=== PATIENT | female | born 1970 | race Caucasian/White ===

== ENCOUNTER → 2016-06-06 | Outpatient (REF) | payer OTHER | LOC: M LAB REF 12:25 | PROVIDERS: ATTEND Physician Assistant | DX: J02.9 Acute pharyngitis, unspecified (principal) ==

== ENCOUNTER → 2018-05-10 | Outpatient (REF) | payer SELFPAY ==
[2018-05-10 11:35] LABS: INFLUENZA A AMPLIFICATION POSITIVE (NEGATIVE); INFLUENZA B AMPLIFICATION NEGATIVE (NEGATIVE)
== END ==
LOC: M LAB REF 10:46
PROVIDERS: ATTEND Physician Assistant
DX: J11.1 Influenza due to unidentified influenza virus with other respiratory manifestations (principal)

== ENCOUNTER → 2019-05-31 | Outpatient (REF) | payer OTHER ==
[2019-05-31 19:01] LABS: HEMATOCRIT 49.7 % (36.0-47.0); HEMOGLOBIN 15.8 g/dl (12.0-15.5); MEAN CORPUSCULAR HGB CONC 31.8 g/dl (32.0-36.5); MEAN CORPUSCULAR VOLUME 94.3 fl (80.0-96.0); PLATELET COUNT, AUTOMATED 249 10^3/uL (150-450); RED BLOOD COUNT 5.27 10^6/uL (4.00-5.40); WHITE BLOOD COUNT 11.6 10^3/uL (4.0-10.0)
[2019-05-31 19:19] LABS: ALBUMIN 3.7 GM/DL (3.2-5.2); ALT/SGPT 24 U/L (12-78); BILIRUBIN,TOTAL 0.3 MG/DL (0.2-1.0); BLOOD UREA NITROGEN 9 MG/DL (7-18); CALCIUM LEVEL 8.4 MG/DL (8.5-10.1); CARBON DIOXIDE LEVEL 30 MEQ/L (21-32); CHLORIDE LEVEL 103 MEQ/L (98-107); CREATININE FOR GFR 0.61 MG/DL (0.55-1.30); FREE T4 0.91 NG/DL (0.76-1.46); GLOMERULAR FILTRATION RATE > 60.0 (>58); GLUCOSE, FASTING 81 MG/DL (70-100); POTASSIUM SERUM 4.6 MEQ/L (3.5-5.1); SODIUM LEVEL 137 MEQ/L (136-145); TOTAL 25(OH) VITAMIN D 9.9 NG/ML (30.0-100.0); TOTAL PROTEIN 7.3 GM/DL (6.4-8.2)
[2019-05-31 19:53] LABS: ANISOCYTOSIS 1+; ATYPICAL LYMPH 3 % (0-5); BASOPHILS 1 % (0-1); EOSINOPHILS 2 % (0-3); HYPOCHROMASIA 1+; LYMPHOCYTES 42 % (16-44); MONOCYTES 5 % (0-5); NEUTROPHILS 47 % (28-66)
[2019-05-31 19:54] LABS: PLATELET ESTIMATE NORMAL (NORMAL)
== END ==
LOC: M SFHCADAM 15:05
PROVIDERS: ATTEND Family Medicine
DX: R68.89 Other general symptoms and signs (principal); F32.9 Major depressive disorder, single episode, unspecified; Z86.39 Personal history of other endocrine, nutritional and metabolic disease

== ENCOUNTER → 2019-06-07 | Outpatient (CLI) | payer OTHER ==
--- NOTE | 2019-06-07 14:46 | REP ---
REASON: Cough. FINDINGS: The superior mediastinal structures are midline. The cardiac silhouette is unremarkable in size, shape, and position. The diaphragmatic surfaces of the lungs are regular, and the costophrenic angles are clear. The pulmonary downey are clear. The imaged osseous structures are intact. IMPRESSION: There is no acute cardiopulmonary disease. Electronically Signed by Don Landeros DO 06/07/2019 03:43 P
== END ==
LOC: M ADAMS 12:06
PROVIDERS: ATTEND Family Medicine
DX: R05 Cough (principal)

== ENCOUNTER 2019-09-08 17:56 | Emergency (ER) | payer OTHER ==
[~2019-09-08] VITALS: Ht 162.6 cm; Wt 96.2 kg
[2019-09-08] MEDS ORDERED: VITA50005 (18:04)
[2019-09-08] MEDS ORDERED: VENL-37 (18:04)
[2019-09-08 18:55] LABS: BASO # 0.1 10^3/uL (0.0-0.2); BASO % 0.6 % (0.0-1.0); EOS # 0.1 10^3/uL (0.0-0.5); EOS % 0.8 % (0.0-3.0); HEMATOCRIT 47.7 % (36.0-47.0); HEMOGLOBIN 15.9 g/dl (12.0-15.5); LYMPH # 2.8 10^3/uL (1.5-5.0); LYMPH % 18.2 % (24.0-44.0); MEAN CORPUSCULAR HEMOGLOBIN 31.4 pg (27.0-33.0); MEAN CORPUSCULAR HGB CONC 33.3 g/dl (32.0-36.5); MEAN CORPUSCULAR VOLUME 94.1 fl (80.0-96.0); MONO # 0.9 10^3/uL (0.0-0.8); NEUTROPHILS # 11.5 10^3/uL (1.5-8.5); NEUTROPHILS % 73.6 % (36.0-66.0); PLATELET COUNT, AUTOMATED 225 10^3/uL (150-450); RED BLOOD COUNT 5.07 10^6/uL (4.00-5.40); WHITE BLOOD COUNT 15.6 10^3/uL (4.0-10.0)
[2019-09-08] MEDS ORDERED: NS 1,000 ML IV ONE (19:30)
[2019-09-08 20:21] LABS: CK-MB VALUE MASS 2.2 NG/ML (<3.6); CPK CREATINE PHOSPHOKINASE 127 U/L (26-192); MB/CK RELATIVE INDEX 1.73 (< OR =4); TROPONIN I < 0.02 NG/ML (< 0.10)
[2019-09-08 22:48] LABS: APPEARANCE, URINE CLEAR (CLEAR); BACTERIA, URINE AUTO NEGATIVE (NEGATIVE); BILIRUBIN, URINE AUTO NEGATIVE (NEGATIVE); BLOOD, URINE BLOOD 1+ (NEGATIVE); COLOR, URINE YELLOW (YELLOW); GLUCOSE, URINE (UA) AUTO NEGATIVE (NEGATIVE); KETONE, URINE AUTO NEGATIVE (NEGATIVE); LEUKOCYTE ESTERASE, URINE AUTO NEGATIVE (NEGATIVE); MUCUS, URINE SMALL (NEGATIVE); NITRITE, URINE AUTO NEGATIVE (NEGATIVE); PROTEIN, URINE AUTO NEGATIVE (NEGATIVE); RBC, URINE AUTO 5 /HPF (0-3); SPECIFIC GRAVITY URINE AUTO 1.016 (1.002-1.035); SQUAMOUS EPITHELIAL CELL UR AU 2 /HPF (0-6); UROBILINOGEN, URINE AUTO 0.2 mg/dL (0.0-2.0); WBC, URINE AUTO 1 /HPF (0-3)
[2019-09-08 23:15] VITALS: BP 138/68
--- NOTE | 2019-09-09 06:55 | REP ---
Clinical: Fever . Comparison: 06/07/2019 . Findings: The mediastinum and cardiac silhouette are stable and within normal limits for portable technique. The lung downey are clear without acute consolidation, effusion, or pneumothorax. Skeletal structures are intact. Impression: No acute cardiopulmonary process appreciated. Electronically Signed by Rah Velasquez MD 09/09/2019 06:47 A
--- NOTE | 2019-09-09 21:24 | ECGEPIP ---
[facility] - ED Test Date: 2019-09-08 Pat Name: KM SO Department: Room: - Gender: Female Broadcast News Producer: JDany : 1970 Requested By: LEXIE Pandya Order Number: [id number] Reading MD: Camron Pike Measurements Intervals [place] Rate: 86 P: 64 [place]: 157 QRS: 66 QRSD: 84 T: 52 QT: 351 QTc: 421 Interpretive Statements SINUS RHYTHM POSSIBLE RIGHT ATRIAL ENLARGEMENT NO PRIORS FOR COMPARISON Electronically Signed on 09-09-2019 21:24:04 EDT by Camron Pike
== END 2019-09-08 23:20 | disposition home or self-care (01) ==
LOC: M ED 17:56
DX: R42 Dizziness and giddiness (principal); E86.0 Dehydration; F32.9 Major depressive disorder, single episode, unspecified; F17.200 Nicotine dependence, unspecified, uncomplicated; Z79.899 Other long term (current) drug therapy

== ENCOUNTER → 2019-09-12 | Outpatient (REF) | payer OTHER ==
[~2019-09-12] MED LIST: VENL-37; VITA50005
[2019-09-12 12:49] LABS: HEMATOCRIT 47.3 % (36.0-47.0); HEMOGLOBIN 15.6 g/dl (12.0-15.5); MEAN CORPUSCULAR HEMOGLOBIN 31.2 pg (27.0-33.0); MEAN CORPUSCULAR VOLUME 94.6 fl (80.0-96.0); PLATELET COUNT, AUTOMATED 248 10^3/uL (150-450); WHITE BLOOD COUNT 12.8 10^3/uL (4.0-10.0)
[2019-09-12 12:58] LABS: APPEARANCE, URINE CLEAR (CLEAR); BACTERIA, URINE AUTO 1+ (NEGATIVE); BILIRUBIN, URINE AUTO NEGATIVE (NEGATIVE); BLOOD, URINE BLOOD NEGATIVE (NEGATIVE); COLOR, URINE YELLOW (YELLOW); GLUCOSE, URINE (UA) AUTO NEGATIVE (NEGATIVE); KETONE, URINE AUTO NEGATIVE (NEGATIVE); LEUKOCYTE ESTERASE, URINE AUTO NEGATIVE (NEGATIVE); MUCUS, URINE SMALL (NEGATIVE); NITRITE, URINE AUTO NEGATIVE (NEGATIVE); PROTEIN, URINE AUTO NEGATIVE (NEGATIVE); RBC, URINE AUTO 6 /HPF (0-3); SPECIFIC GRAVITY URINE AUTO 1.018 (1.002-1.035); SQUAMOUS EPITHELIAL CELL UR AU 2 /HPF (0-6); WBC, URINE AUTO 1 /HPF (0-3)
[2019-09-12 13:22] LABS: ATYPICAL LYMPH 7 % (0-5); EOSINOPHILS 1 % (0-3); LYMPHOCYTES 30 % (16-44); MONOCYTES 5 % (0-5); NEUTROPHILS 57 % (28-66); PLATELET ESTIMATE NORMAL (NORMAL)
== END ==
LOC: M SFHCADAM 11:28
PROVIDERS: ATTEND Physician Assistant Medical
DX: R31.21 Asymptomatic microscopic hematuria (principal); D72.829 Elevated white blood cell count, unspecified

== ENCOUNTER → 2019-11-27 | Outpatient (CLI) | payer OTHER ==
--- NOTE | 2019-12-23 17:04 | REP ---
AC JOINT SERIES CLINICAL: Contusion to the right shoulder. TECHNIQUE: AP, neutral and weightbearing views of the right and left acromioclavicular joints. FINDINGS: The bilateral acromioclavicular joints are symmetric and normal. No significant widening noted on weightbearing views. IMPRESSION: Normal examination. MTDD
--- NOTE | 2019-12-23 17:20 | REP ---
RIGHT SHOULDER SERIES CLINICAL: Contusion. TECHNIQUE: Internal rotation, external rotation and wide view of the right shoulder. FINDINGS: The acromioclavicular and glenohumeral joints are intact. No acute fracture or dislocation. Subacromial space is normal. No periarticular calcifications or loose bodies. Surrounding soft tissues are normal. IMPRESSION: Normal age appropriate right shoulder radiographs. No acute fracture or dislocation. MTDD
== END ==
LOC: M ADAMS 11:12
PROVIDERS: ATTEND Physician Assistant
DX: S40.011A Contusion of right shoulder, initial encounter (principal); Y92.9 Unspecified place or not applicable; Y93.9 Activity, unspecified; Y99.9 Unspecified external cause status

== ENCOUNTER → 2020-02-03 | Outpatient (CLI) | payer OTHER ==
[~2020-02-03] MED LIST changes: +ALBU8.5H; +ALBU83IN; +ALBU83IN INH; +DOXY100C37; +DOXY100C37 PO; +PRED20TA; +PROAAER10 INH; +SERT50TA29; +SERT50TA29 PO; +VITA50005 PO
== END ==
LOC: M LABSMTC 09:50
PROVIDERS: ATTEND Family Medicine
DX: Z20.828 Contact with and (suspected) exposure to other viral communicable diseases (principal)
CPT/HCPCS: C9803; U0003

== ENCOUNTER → 2020-02-05 | Outpatient (CLI) | payer OTHER ==
--- NOTE | 2020-02-05 14:40 | REP ---
INDICATION: ACUTE BRONCHITIS. COMPARISON: 09/08/2019, 06/07/2019 TECHNIQUE: Two views FINDINGS: There are extensive patchy right middle lobe infiltrates in the infrahilar region of the right lung. Peribronchial thickening bilaterally and streaky densities in a peribronchial distribution. No pleural effusion. Mid and upper lung zones are clear. The heart not enlarged. The aorta is intact. The airway is intact. Bony thorax shows no compression deformity or focal lesion. I see no free air under the diaphragm. Visualized ribs, clavicles and scapulae grossly intact IMPRESSION: Right middle lobe pneumonia with no gross effusion. Some subtle patchy infiltrates elsewhere in the bases may also be suggested. No effusion. Mid upper lung zones clear. No other finding. <Electronically signed by Kobi Ireland > 02/05/20 [id number]
== END ==
LOC: M ADAMS 10:24
PROVIDERS: ATTEND Physician Assistant
DX: J18.9 Pneumonia, unspecified organism (principal); R50.9 Fever, unspecified

== ENCOUNTER 2020-02-10 17:18 | Inpatient (IN) | payer OTHER ==
[~2020-02-10] VITALS: Ht 162.6 cm; Wt 103.8 kg
[~2020-02-10 17:18] MED LIST changes: -ALBU8.5H; -ALBU83IN; -ALBU83IN INH; -DOXY100C37; -DOXY100C37 PO; -PRED20TA; -PROAAER10 INH; -SERT50TA29; -SERT50TA29 PO; -VITA50005 PO
[2020-02-10] MEDS ORDERED: SERT50TA29 (17:27)
[2020-02-10] MEDS ORDERED: PRED20TA (17:27)
[2020-02-10] MEDS ORDERED: ALBU8.5H (17:27)
[2020-02-10] MEDS ORDERED: DOXY100C37 (17:27)
[2020-02-10] MEDS ORDERED: ALBU83IN (17:27)
[2020-02-10 18:40] LABS: HEMATOCRIT 46.5 % (36.0-47.0); HEMOGLOBIN 14.2 g/dl (12.0-15.5); MEAN CORPUSCULAR HEMOGLOBIN 28.6 pg (27.0-33.0); MEAN CORPUSCULAR HGB CONC 30.5 g/dl (32.0-36.5); MEAN CORPUSCULAR VOLUME 93.8 fl (80.0-96.0); PLATELET COUNT, AUTOMATED 290 10^3/uL (150-450); RED BLOOD COUNT 4.96 10^6/uL (4.00-5.40); WHITE BLOOD COUNT 14.6 10^3/uL (4.0-10.0)
--- NOTE | 2020-02-10 18:59 | REP ---
INDICATION: DYSPNEA/COUGH. COMPARISON: 09/08/2019. TECHNIQUE: SINGLE PORTABLE AP VIEW OF THE CHEST WAS PERFORMED. FINDINGS: THERE IS NO ACUTE INFILTRATE OR PULMONARY EDEMA. LUNGS ARE CLEAR. HEART IS NOT SIGNIFICANTLY ENLARGED. MEDIASTINAL SILHOUETTE IS UNREMARKABLE. THE VISUALIZED OSSEOUS STRUCTURES ARE INTACT. IMPRESSION: NO ACUTE PULMONARY DISEASE. <Electronically signed by Pato Rosen > 02/10/20 [id number]
[2020-02-10 19:09] LABS: ATYPICAL LYMPH 3 % (0-5); BASOPHILS 2 % (0-1); EOSINOPHILS 1 % (0-3); LYMPHOCYTES 22 % (16-44); MONOCYTES 8 % (0-5); NEUTROPHILS 64 % (28-66); PLATELET ESTIMATE NORMAL (NORMAL)
[2020-02-10 19:15] LABS: BLOOD UREA NITROGEN 9 MG/DL (7-18); CALCIUM LEVEL 8.5 MG/DL (8.5-10.1); CARBON DIOXIDE LEVEL 34 MEQ/L (21-32); CHLORIDE LEVEL 102 MEQ/L (98-107); CREATININE FOR GFR 0.67 MG/DL (0.55-1.30); GLOMERULAR FILTRATION RATE > 60.0 (>58); GLUCOSE, FASTING 85 MG/DL (70-100); POTASSIUM SERUM 4.3 MEQ/L (3.5-5.1); SODIUM LEVEL 140 MEQ/L (136-145)
[2020-02-10] MEDS ORDERED: IPRATROPIUM 0.5MG/ALBUTEROL 2.5MG INH SOL UD 3ML (DUONEB) NEB ONE (20:00)
[2020-02-10 20:08] LABS: CK-MB VALUE MASS 1.6 NG/ML (<3.6); CPK CREATINE PHOSPHOKINASE 352 U/L (26-192); MB/CK RELATIVE INDEX 0.45 (< OR =4); NT-PRO BNP 15 PG/ML (<125); TROPONIN I < 0.02 NG/ML (< 0.10)
[2020-02-10 21:35] VITALS: O2SAT 86
[2020-02-10] MEDS ORDERED: dexameTHASONE 20MG/5ML VIAL (J1100 PER 1MG) IV ONE (21:45)
[2020-02-10] MEDS: IPRATROPIUM 0.5MG/ALBUTEROL 2.5MG INH SOL UD 3ML (DUONEB) NEB SCH ×2 (21:48→22:05)
[2020-02-10] MEDS ORDERED: DOXY100C37 PO (22:26)
[2020-02-10] MEDS ORDERED: ALBU83IN INH (22:26)
[2020-02-10] MEDS ORDERED: VITA50005 PO (22:26)
[2020-02-10] MEDS ORDERED: PROAAER10 INH (22:26)
[2020-02-10] MEDS ORDERED: SERT50TA29 PO (22:26)
[2020-02-10] MEDS ORDERED: IPRATROPIUM 0.5MG/ALBUTEROL 2.5MG INH SOL UD 3ML (DUONEB) NEB PRN (22:30)
[2020-02-10] MEDS ORDERED: ENOXAPARIN 40MG/0.4ML SYRINGE (J1650 PER 10MG) SC ONE (22:30)
[2020-02-10] MEDS ORDERED: ISOVUE-370 76% 100ML VIAL As Ordered ONE (22:39)
[2020-02-10 23:50] VITALS: BP 126/73
[2020-02-11] MEDS ORDERED: IPRATROPIUM 0.5MG/ALBUTEROL 2.5MG INH SOL UD 3ML (DUONEB) NEB SCH
--- NOTE | 2020-02-11 00:03 | ECGEPIP ---
[facility] - ED Test Date: 2020-02-10 Pat Name: KM SO Department: Room: - Gender: Female Woodworker: SAGRARIO : 1970 Requested By: Camron Lara Order Number: [id number] Reading MD: Camron Pike Measurements Intervals [place] Rate: 62 P: 67 [place]: 141 QRS: 84 QRSD: 81 T: 74 QT: 392 QTc: 400 Interpretive Statements SINUS RHYTHM SIMILAR TO 09/08/19 Electronically Signed on 02-11-2020 0:03:08 EST by Camron Pike
--- NOTE | 2020-02-11 00:13 | REPVR ---
PROCEDURE INFORMATION: Exam: CT Angiography Chest With Contrast Exam date and time: 02/10/2020 11:36 PM Age: 49 years old Clinical indication: Other: Hypoxia; Additional info: Hypoxia R/O pe. TECHNIQUE: Imaging protocol: Computed tomographic angiography of the chest with intravenous contrast. 3D rendering (Not supervised by radiologist): MIP and/or 3D reconstructed images were created by the technologist. Radiation optimization: All CT scans at this facility use at least one of these dose optimization techniques: automated exposure control; mA and/or kV adjustment per patient size (includes targeted exams where dose is matched to clinical indication); or iterative reconstruction. Contrast material: ISOVUE 370; Contrast volume: 75 ml; Contrast route: INTRAVENOUS (IV); COMPARISON: [place] PORTABLE CHEST X-RAY 2020-02-10 18:39 FINDINGS: Pulmonary arteries: No filling defects in the pulmonary arteries to suggest pulmonary emboli. Aorta: Unremarkable. No aortic aneurysm. No aortic dissection. Lungs: Dependent subsegmental pulmonary atelectasis. There is some vague subtle ground-glass opacities in the anterior left upper lobe. Focal subsegmental atelectasis versus nodule along the anteromedial left upper lobe measuring 8 mm. Left fissural nodule measuring 4 mm on series 402, image 45. Pleural space: Unremarkable. No pneumothorax. No pleural effusion. Heart: Unremarkable. No cardiomegaly. No pericardial effusion. Mediastinal space: Small gastroesophageal sliding type hiatal hernia. Lymph nodes: Unremarkable. No enlarged lymph nodes. Liver: Hepatic steatosis. Gallbladder and bile ducts: Cholelithiasis. Bones/joints: Unremarkable. No acute fracture. Soft tissues: Unremarkable. IMPRESSION: 1. Focal subsegmental atelectasis versus nodule along the anteromedial left upper lobe measuring 8 mm. Left fissural nodule measuring 4 mm on series 402, image 45. Recommend follow-up. 2. No filling defects in the pulmonary arteries to suggest pulmonary emboli. 3. Cholelithiasis. COMMENTS: As per Fleischner Society guidelines for follow-up and management of pulmonary nodules: For patients at low risk (minimal or absent history of smoking and of other known risk factors), recommend initial follow-up chest CT at 6-12 months then at 18-24 months if no change. For patient at high risk (history of smoking or of other known risk factors), recommend initial follow-up chest CT at 3-6 months, then at 9-12 and 24 months if no change. Electronically signed by: Christos Castro On 02/11/2020 00:13:09 AM
[2020-02-11] MEDS ORDERED: COMBIVENT RESPIMAT 100-20MCG INHALER 4GM INH PRN (01:15)
[2020-02-11 01:28] LABS: CK-MB VALUE MASS 1.6 NG/ML (<3.6); CPK CREATINE PHOSPHOKINASE 397 U/L (26-192); TROPONIN I < 0.02 NG/ML (< 0.10)
[2020-02-11] MEDS: MOXIFLOXACIN HCL 400 MG in IV 1 EA IV SCH ×3 (01:41)
[2020-02-11 02:25] LABS: INR 0.97; PROTHROMBIN TIME 13.1 SECONDS (12.5-14.3)
[2020-02-11 02:26] LABS: PARTIAL THROMBOPLASTIN TIME 29.7 SECONDS (24.2-38.5)
[2020-02-11 02:29] LABS: D-DIMER QUANT 281.23 ng/ml (<500)
--- NOTE | 2020-02-11 02:46 | HPEPDOC ---
[facility] Medical History & Physical Date of Admission Feb 10, 2020 Date of Service: Feb 10, 2020 History and Physical CHIEF COMPLAINT: Shortness of breath for a few days HISTORY OF PRESENT ILLNESS: 49 F with morbid obesity BMI 39.3, nicotine dependence, 2 pack a day since the age of 14 with no documented history of COPD or asthma in the past, vitamin D deficiency, migraines, depression, presents to the emergency room with complaints of several day history of worsening shortness of breath, dyspnea on exertion, unable to ambulate more than 10 feet without being short of breath, cough productive of forman green sputum, low-grade temperatures, 100-100.1 at home, without nausea, vomiting, loss of taste, diarrhea, abdominal pain, but admits to having on and off chills. Patient was checked for Covid on February 02 , and 04 02, all of which have been negative. Chest x-ray 02/10/2020 when patient was seen in the emergency room showed no acute infiltrate or pulmonary edema. Lungs were clear .She has no covert exposures recently. Patient denies any headaches, confusion, diarrhea. In the ER, she was afebrile at 98.5, white count of 14.6, but patient admits to taking some steroids and doxycycline as outpatient, hypoxic with 86% oxygen saturation on room air, chest x-ray and on 02/10/2020 shows no acute pulmonary disease, CT chest showed no pulmonary embolism but focal subsegmental atelectasis versus nodule along the anterior medial left upper lobe measuring 8 mm and a left fissural nodule measuring 4 mm on image 45. Recommend follow-up no filling defects to suggest pulmonary embolism. Cholelithiasis. Hospitalist was asked to admit for acute hypoxic respiratory failure, 86% oxygen saturation on room air, Covid negative, and CT chest showing atelectasis and vague subtle ground glass opacity in the anterior left upper lobe and pulmonary nodules. PAST MEDICAL HISTORY: morbid obesity BMI 39.3, migraines, depression, vitamin D deficiency, nicotine dependence, small gastroesophageal sliding-type hiatal hernia, cholelithiasis , hepatic steatosis, PAST SURGICAL HISTORY: None HOME MEDICATIONS: SEE BELOW ALLERGIES: SEE BELOW SOCIAL HISTORY: High school graduate, , lives with son at home, Nicotine dependence, presyncope, asymptomatic microscopic hematuria FAMILY HISTORY: Mother and father unknown medical problems. Sr. epilepsy and asthma. Brother with cerebral palsy and epilepsy REVIEW OF SYSTEMS: 10 point review of systems negative aside from positive findings in HPI PHYSICAL EXAMINATION: VITAL SIGNS: See below GENERAL APPEARANCE: Awake, alert, oriented 3, 6-7 word conversational dyspnea with mild use of respiratory accessory muscles. No diaphoresis, pallor, icterus or jaundice HEENT: No nasal flaring or tracheal deviation. No cyanosis. No jugular venous distention, thyromegaly, cervical lymphadenopathy. Dry mucous membranes. Pupils equally round, reactive to light. Extra muscles are intact. No stridor and examination CARDIOVASCULAR: S1, S2, sinus rhythm, no murmurs, rubs or gallops. No carotid bruits LUNGS: Diminished breath sounds bilateral expiratory wheezing, prolonged exp iration. Positive use of respiratory accessory muscles. No tripod positioning. Mild conversational dyspnea limited to 6-7 words ABDOMEN: Obese, soft, nontender, nondistended. Possible. 5. Bowel sounds 4 quadrants. No rebound, guarding, no hepatosplenomegaly EXTREMITIES: No cyanosis, clubbing or pitting edema LABORATORY DATA: See below. IMAGING: INDICATION: DYSPNEA/COUGH. COMPARISON: 09/08/2019. TECHNIQUE: SINGLE PORTABLE AP VIEW OF THE CHEST WAS PERFORMED. FINDINGS: THERE IS NO ACUTE INFILTRATE OR PULMONARY EDEMA. LUNGS ARE CLEAR. HEART IS NOT SIGNIFICANTLY ENLARGED. MEDIASTINAL SILHOUETTE IS UNREMARKABLE. THE VISUALIZED OSSEOUS STRUCTURES ARE INTACT. IMPRESSION: NO ACUTE PULMONARY DISEASE. <Electronically signed by Pato Rosen > 02/10/20 [id number] Exam: CT Angiography Chest With Contrast Exam date and time: 02/10/2020 11:36 PM Age: 49 years old Clinical indication: Other: Hypoxia; Additional info: Hypoxia R/O pe. TECHNIQUE: Imaging protocol: Computed tomographic angiography of the chest with intravenous contrast. 3D rendering (Not supervised by radiologist): MIP and/or 3D reconstructed images were created by the technologist. Radiation optimization: All CT scans at this facility use at least one of these dose optimization techniques: automated exposure control; mA and/or kV adjustment per patient size (includes targeted exams where dose is matched to clinical indication); or iterative reconstruction. Contrast material: ISOVUE 370; Contrast volume: 75 ml; Contrast route: INTRAVENOUS (IV); COMPARISON: [place] PORTABLE CHEST X-RAY 2020-02-10 18:39 FINDINGS: Pulmonary arteries: No filling defects in the pulmonary arteries to suggest pulmonary emboli. Aorta: Unremarkable. No aortic aneurysm. No aortic dissection. Lungs: Dependent subsegmental pulmonary atelectasis. There is some vague subtle ground-glass opacities in the anterior left upper lobe. Focal subsegmental atelectasis versus nodule along the anteromedial left upper lobe measuring 8 mm. Left fissural nodule measuring 4 mm on series 402, image 45. Pleural space: Unremarkable. No pneumothorax. No pleural effusion. Heart: Unremarkable. No cardiomegaly. No pericardial effusion. Mediastinal space: Small gastroesophageal sliding type hiatal hernia. Lymph nodes: Unremarkable. No enlarged lymph nodes. Liver: Hepatic steatosis. Gallbladder and bile ducts: Cholelithiasis. Bones/joints: Unremarkable. No acute fracture. Soft tissues: Unremarkable. IMPRESSION: 1. Focal subsegmental atelectasis versus nodule along the anteromedial left upper lobe measuring 8 mm. Left fissural nodule measuring 4 mm on series 402, image 45. Recommend follow-up. 2. No filling defects in the pulmonary arteries to suggest pulmonary emboli. 3. Cholelithiasis. COMMENTS: As per Fleischner Society guidelines for follow-up and management of pulmonary nodules: For patients at low risk (minimal or absent history of smoking and of other known risk factors), recommend initial follow-up chest CT at 6-12 months then at 18-24 months if no change. For patient at high risk (history of smoking or of other known risk factors), recommend initial follow-up chest CT at 3-6 months, then at 9-12 and 24 months if no change. Electronically signed by: Christos Castro On 02/11/2020 00:13:09 AM MICROBIOLOGY: Please see below. ASSESSMENT/PLAN: Reactive Airway Disease versus Bronchospasm -Albuterol, Atrovent every 4 hourly and every 2 hourly as needed for wheezing and shortness of breath. Supplemental oxygen to keep O2 saturations greater than 90%. Solu-Medrol intravenously every 6 hourly, Avelox 100 mg daily. Chest x-ray shows no acute infiltrate. Sputum culture. Pulmonary nodules -History of over [id number] smoking 2 packs a day since the age of 14. Patient will need a repeat CT chest as outpatient and referral to [facility] for possible biopsy to rule out malignancy. Tobacco cessation counseling has been provided as well as a nicotine patch Acute hypoxic respiratory failure -Covid 19 negative. Chest x-ray no infiltrate, edema, pleural effusion. Treat underlying possible bronchospasm and inflammation with IV steroids and antibiotics empirically. Titrate oxygen to saturations greater than 90%. Ruled out pulmonary embolism with CT angio Chest. Respiratory panel negative. DVT prophylaxis with Lovenox. Incentive spirometry. Check inflammatory markers incl uding d-dimer, ESR, CRP, LDH. Cardiac markers, liver function tests to Evaluate for COVID markers. Patient will need outpatient pulmonary function testing to document restrictive versus obstructive disease. Current hypoxia is most likely related to either reactive airway disease, bronchospasm, or COPD. Morbid obesity, BMI of 39.3 -Encourage outpatient weight loss program. Check lipid panel, A1c to rule out metabolic syndrome. Monitor patient's blood pressure and optimize if possible. Low-fat, low-cholesterol diet Tobacco abuse -Tobacco cessation counseling, nicotine patch Hiatal hernia -Chronic migraines, asymptomatic depression, chronic -No active suicidal or homicidal ideation vitamin D deficiency -Supplement, vitamin D Diet low-fat, low-cholesterol, 2 g sodium CODE STATUS full code DVT prophylaxis. Lovenox 40 mg subcutaneous daily Vital Signs Vital Signs Date Time Temp Pulse Resp B/P (MAP) Pulse Ox O2 Delivery O2 Flow Rate FiO2 02/10/20 22:00 77 14 125/66 (85) 97 Nasal Cannula 3.0 02/10/20 17:19 97.5 Laboratory Data Labs 24H Laboratory Tests 2 02/10/20 18:24: Neutrophils (%) (Auto) , Nucleated Red Blood Cells % (auto) 0.0, Neutrophils 64, Lymphocytes (Manual) 22, Monocytes (Manual) 8H, Eosinophils (Manual) 1, Basophils (Manual) 2H, Atypical Lymphocytes 3, Platelet Estimate NORMAL, Anion Gap 4L, Glomerular Filtration Rate > 60.0, Calcium Level 8.5, Total Creatine Kinase 352H, Creatine Kinase MB 1.6, Creatine Kinase MB Relative Index 0.45, Troponin I < 0.02, ME-Siy-M-Type Natriuretic Peptide 15 02/10/20 18:58: POC pH (Misc Panel) 7.393, POC Base Excess (Misc Panel) 5.0H, POC Saturated Percent O2 (Misc) 94L, POC pO2 (Misc Panel) 74.0L, POC pCO2 (Misc Panel) 49.6H, POC HCO3 (Misc Panel) 30.2H, POC Total CO2 (Misc Panel) 32.0H CBC/BMP Laboratory Tests 02/10/20 18:24 Microbiology Microbiology 02/10/20 Blood Culture, Received Pending 02/10/20 Respiratory Virus Panel (PCR) (THOMAS) - Final, Complete 02/10/20 Blood Culture, Received Pending Home Medications Scheduled Doxycycline Monohydrate (Doxycycline Monohydrate) 100 Mg Capsule, 100 MG PO BID STARTED ON 02/05/2020 Ergocalciferol (Vitamin D2) (Vitamin D2) 50,000 Units Cap, 50,000 UNITS PO 1XWK SATURDAYS Sertraline HCl (Sertraline HCl) 50 Mg Tablet, 50 MG PO DAILY Scheduled PRN Albuterol Sulf (Albuterol Sulfate) 2.5 Mg/3 Ml Vial.neb, 2.5 MG INH Q4H PRN for SOB/WHEEZING Albuterol Sulfate (Proair Hfa) 8.5 Gm Hfa.aer.ad, 2 PUFF INH Q4H PRN for SOB/WHEEZING Allergies Coded Allergies: No Known Allergies (Unverified , 09/08/19) A-FIB/CHADSVASC A-FIB History Current/History of A-Fib/PAF?: No Current PO Anticoag Therapy: No Age/Risk Factor Scoring CHADSVASC: CHADSVASC Response (Comments) Value Age Risk Factor Age < 65 years old 0 Gender Risk Factor Female 1 Hx of CHF No 0 Hx of HTN No 0 Hx of Stroke/TIA/or VTE No 0 Hx of Diabetes No 0 Hx of Vascular Disease No 0 Total 1 Treatment Treatment ordered: NONE ADALID GHOTRA MD Feb 10, 2020 22:31
[2020-02-11 02:47] LABS: ALBUMIN 3.4 GM/DL (3.2-5.2); ALT/SGPT 20 U/L (12-78); BILIRUBIN,DIRECT < 0.1 MG/DL (0.0-0.2); BILIRUBIN,TOTAL 0.2 MG/DL (0.2-1.0); C REACTIVE PROTEIN QUANTITATIV 0.64 MG/DL (0.00-0.30); FERRITIN 8 NG/ML (8-252); LDH LACTATE DEHYDROGENASE 197 U/L (84-246); TOTAL PROTEIN 6.9 GM/DL (6.4-8.2); TRIGLYCERIDES LEVEL 150 MG/DL (<150)
[2020-02-11] MEDS: COMBIVENT RESPIMAT 100-20MCG INHALER 4GM INH SCH ×6 (02:49→23:21)
[2020-02-11] MEDS: methylPREDNISolone 125MG 2ML VIAL IV SCH ×3 (05:34→18:08)
[2020-02-11 06:00] VITALS: BP 123/73
[2020-02-11 07:01] LABS: BASO # 0.1 10^3/uL (0.0-0.2); BASO % 0.6 % (0.0-1.0); HEMATOCRIT 47.3 % (36.0-47.0); HEMOGLOBIN 14.5 g/dl (12.0-15.5); LYMPH # 1.2 10^3/uL (1.5-5.0); LYMPH % 9.3 % (24.0-44.0); MEAN CORPUSCULAR HEMOGLOBIN 28.7 pg (27.0-33.0); MEAN CORPUSCULAR HGB CONC 30.7 g/dl (32.0-36.5); MEAN CORPUSCULAR VOLUME 93.7 fl (80.0-96.0); MONO # 0.2 10^3/uL (0.0-0.8); MONO % 1.7 % (0.0-5.0); NEUTROPHILS # 10.8 10^3/uL (1.5-8.5); NEUTROPHILS % 85.5 % (36.0-66.0); PLATELET COUNT, AUTOMATED 287 10^3/uL (150-450); RED BLOOD COUNT 5.05 10^6/uL (4.00-5.40); WHITE BLOOD COUNT 12.7 10^3/uL (4.0-10.0)
[2020-02-11 07:35] LABS: BLOOD UREA NITROGEN 11 MG/DL (7-18); CALCIUM LEVEL 8.9 MG/DL (8.5-10.1); CARBON DIOXIDE LEVEL 32 MEQ/L (21-32); CHLORIDE LEVEL 104 MEQ/L (98-107); CK-MB VALUE MASS 1.8 NG/ML (<3.6); CPK CREATINE PHOSPHOKINASE 311 U/L (26-192); CREATININE FOR GFR 0.63 MG/DL (0.55-1.30); GLOMERULAR FILTRATION RATE > 60.0 (>58); GLUCOSE, FASTING 147 MG/DL (70-100); MB/CK RELATIVE INDEX 0.58 (< OR =4); POTASSIUM SERUM 4.9 MEQ/L (3.5-5.1); SODIUM LEVEL 140 MEQ/L (136-145); TROPONIN I < 0.02 NG/ML (< 0.10)
[2020-02-11] MEDS: SERTRALINE HCL 50 MG TAB PO SCH (09:47)
[2020-02-11] MEDS: ENOXAPARIN 40MG/0.4ML SYRINGE (J1650 PER 10MG) SC SCH (09:47)
[2020-02-11] MEDS: NICOTINE 14 MG/24 HR TRANSDERMAL TD SCH (09:48)
[2020-02-11 09:57] LABS: HEPATITIS B SURFACE ANTIGEN NEGATIVE (NEGATIVE)
[2020-02-11] MEDS: SYMBICORT 160/4.5MCG INHALER 6GM INH SCH ×2 (10:16→19:33)
[2020-02-11 10:26] LABS: HIV 1&2 SCREEN CENTAUR NEGATIVE (NEGATIVE)
[2020-02-11] MEDS: SODIUM CHLORIDE NASAL 0.65% SPRAY BTL (OCEAN) SCH ×3 (12:40→21:14)
[2020-02-11 13:15] LABS: HEMOGLOBIN A1c 6.2 %
[2020-02-11 22:00] VITALS: BP 125/179
[2020-02-12] MEDS: MOXIFLOXACIN HCL 400 MG in IV 1 EA IV SCH (00:12)
[2020-02-12] MEDS: methylPREDNISolone 125MG 2ML VIAL IV SCH ×3 (00:12→12:44)
[2020-02-12] MEDS: COMBIVENT RESPIMAT 100-20MCG INHALER 4GM INH SCH ×3 (03:00→11:13)
[2020-02-12 06:00] VITALS: BP 112/63
[2020-02-12 06:59] LABS: BASO # 0.1 10^3/uL (0.0-0.2); BASO % 0.2 % (0.0-1.0); HEMATOCRIT 46.4 % (36.0-47.0); HEMOGLOBIN 14.9 g/dl (12.0-15.5); LYMPH # 1.9 10^3/uL (1.5-5.0); LYMPH % 6.6 % (24.0-44.0); MEAN CORPUSCULAR HEMOGLOBIN 29.9 pg (27.0-33.0); MEAN CORPUSCULAR HGB CONC 32.1 g/dl (32.0-36.5); MONO # 0.7 10^3/uL (0.0-0.8); MONO % 2.4 % (0.0-5.0); NEUTROPHILS # 26.1 10^3/uL (1.5-8.5); NEUTROPHILS % 89.5 % (36.0-66.0); PLATELET COUNT, AUTOMATED 295 10^3/uL (150-450); RED BLOOD COUNT 4.99 10^6/uL (4.00-5.40); WHITE BLOOD COUNT 29.2 10^3/uL (4.0-10.0)
[2020-02-12] MEDS: SYMBICORT 160/4.5MCG INHALER 6GM INH SCH (07:22)
[2020-02-12 07:23] LABS: BLOOD UREA NITROGEN 13 MG/DL (7-18); CALCIUM LEVEL 8.6 MG/DL (8.5-10.1); CARBON DIOXIDE LEVEL 28 MEQ/L (21-32); CHLORIDE LEVEL 106 MEQ/L (98-107); CREATININE FOR GFR 0.64 MG/DL (0.55-1.30); GLOMERULAR FILTRATION RATE > 60.0 (>58); GLUCOSE, FASTING 144 MG/DL (70-100); POTASSIUM SERUM 4.5 MEQ/L (3.5-5.1); SODIUM LEVEL 139 MEQ/L (136-145)
[2020-02-12] MEDS: NICOTINE 14 MG/24 HR TRANSDERMAL TD SCH (08:39)
[2020-02-12] MEDS: SODIUM CHLORIDE NASAL 0.65% SPRAY BTL (OCEAN) SCH (08:39)
[2020-02-12] MEDS: SERTRALINE HCL 50 MG TAB PO SCH (08:39)
[2020-02-12] MEDS: ENOXAPARIN 40MG/0.4ML SYRINGE (J1650 PER 10MG) SC SCH (08:40)
[2020-02-12] MEDS ORDERED: SYMB80INH INH (12:22)
[2020-02-12] MEDS ORDERED: PRED20TA PO (12:22)
[2020-02-12] MEDS ORDERED: MOXI1TAB PO (12:23)
--- NOTE | 2020-02-12 13:22 | IPNPDOC ---
Text Note Date of Service The patient was seen on 02/11/20. NOTE SUBJECTIVE: Feeling better today. SOB is improving, still has wheezing, nasal congestion and dry cough. PHYSICAL EXAMINATION: VITAL SIGNS: See below GENERAL APPEARANCE: Awake, alert, oriented No conversational dyspnea this morning HEENT: NC/AT Moist mucous membranes, anicteric eyes. No nasal flaring. Neck: No jugular venous distention, thyromegaly, cervical lymphadenopathy. Dry mucous membranes. Pupils equally round, reactive to light. Extra muscles are intact. No stridor and examination CARDIOVASCULAR: S1, S2, sinus rhythm, no murmurs, rubs or gallops. No carotid bruits LUNGS: Diminished breath sounds bilateral expiratory wheezing, prolonged expiration. Positive use of respiratory accessory muscles. No tripod positioning. Mild conversational dyspnea limited to 6-7 words ABDOMEN: Obese, soft, nontender, nondistended. Possible. 5. Bowel sounds 4 quadrants. No rebound, guarding, no hepatosplenomegaly EXTREMITIES: No cyanosis, clubbing or pitting edema Labs and Radiology: reviewed Assessment and Plan: 49 F with morbid obesity BMI 39.3, nicotine dependence, 2 pack a day since the age of 14 with no documented history of COPD or asthma in the past, vitamin D deficiency, migraines, depression, presents to the emergency room with complaints of several day history of worsening shortness of breath, dyspnea on exertion, unable to ambulate more than 10 feet without being short of breath, cough productive of forman green sputum, low-grade temperatures, 100-100.1 at home, without nausea, vomiting, loss of taste, diarrhea, abdominal pain, but admits to having on and off chills. Patient was checked for Covid on February 02 , and , all of which have been negative. Chest x-ray 02/10/2020 when patient was seen in the emergency room showed no acute infiltrate or pulmonary edema. She has no exposures recently. In the ER, she was afebrile at 98.5, white count of 14.6, but patient admits to taking some steroids and doxycycline as outpatient, hypoxic with 86% oxygen saturation on room air, chest x-ray and on 02/10/2020 shows no acute pulmonary disease, CT chest showed no pulmonary embolism but focal subsegmental atelectasis versus nodule along the anterior medial left upper lobe measuring 8 mm and a left fissural nodule measuring 4 mm on image 45. Patient was admitted for acute hypoxic respiratory failure, 86% oxygen saturation on room air, Covid negative, and CT chest showing atelectasis and vague subtle ground glass opacity in the anterior left upper lobe and pulmonary nodules. Acute hypoxic respiratory failure Most probably due to acute reactive airway disease due to a viral infection and acute bronchitis/ undiagnosed COPD with exacerbation. Covid 19 negative. Resp panel negative, Chest x-ray no infiltrate, edema, pleural effusion. D dimer and ferritin not elevated, LDH not elevated, Procalcitonin not elevated. Treat bronchospasm and inflammation with IV steroids and antibiotics empirically. Titrate oxygen to saturations greater than 90%. Ruled out pulmonary embolism with CT angio Chest. Patient will need outpatient pulmonary function testing to document restrictive versus obstructive disease. Continue oxygen supplementation, steroids, inhalers Reactive Airway Disease Combivent, Symbicort, methyl prednisone, Moxifloxacin. Pulmonary nodules History of over 82-weec-aujw smoking 2 packs a day since the age of 14. Patient will need a repeat CT chest as outpatient and referral to [facility] for possible biopsy to rule out malignancy. Tobacco cessation counseling has been provided as well as a nicotine patch Morbid obesity, BMI of 39.3 follow up with PMD Tobacco abuse Tobacco cessation counseling, nicotine patch Hiatal hernia Chronic Migraines, asymptomatic Depression, chronic vitamin D deficiency Supplement, vitamin D Diet low-fat, low-cholesterol, 2 g sodium CODE STATUS full code DVT prophylaxis. Lovenox 40 mg subcutaneous daily VS,Fishbone, I+O VS, Fishbone, I+O Laboratory Tests 02/10/20 18:24 02/11/20 06:51 Vital Signs Date Time Temp Pulse Resp B/P (MAP) Pulse Ox O2 Delivery O2 Flow Rate FiO2 02/11/20 06:07 5.0 02/11/20 06:00 98.6 91 22 123/73 (90) 93 Nasal Cannula I&O- Last 24 Hours up to 6 AM 02/11/20 06:00 Intake Total 300 ml Output Total 600 ml Balance -300 ml JEREMIE VERDIN MD Feb 11, 2020 10:44
--- NOTE | 2020-02-12 13:35 | DS.PDOC ---
Discharge Summary General Date of Admission Feb 10, 2020 at 22:19 Date of Discharge 02/12/20 Discharge Summary PROCEDURES PERFORMED DURING STAY: [None]. DISCHARGE DIAGNOSES: Acute respiratory failure with hypoxia Reactive Airway disease Acute Bronchitis Viral respiratory tract infection Leucocytosis due to steroids. Morbid obesity Pulmonary nodules Tobacco abuse Hiatal hernia Migraines Depression vitamin D deficiency COMPLICATIONS/CHIEF COMPLAINT: Hypoxia. HOSPITAL COURSE: 49 F with morbid obesity BMI 39.3, nicotine dependence, 2 pack a day since the age of 14 with no documented history of COPD or asthma in the past, vitamin D deficiency, migraines, depression, presents to the emergency room with complaints of several day history of worsening shortness of breath, dyspnea on exertion, unable to ambulate more than 10 feet without being short of breath, cough productive of forman green sputum, low-grade temperatures, 100-100.1 at home, without nausea, vomiting, loss of taste, diarrhea, abdominal pain, but admits to having on and off chills. Patient was checked for Covid on February 02 , and , all of which have been negative. Chest x-ray 02/10/2020 when patient was seen in the emergency room showed no acute infiltrate or pulmonary edema. She has no exposures recently. In the ER, she was afebrile at 98.5, white count of 14.6, but patient admits to taking some steroids and doxycycline as outpatient, hypoxic with 86% oxygen saturation on room air, chest x-ray and on 02/10/2020 shows no acute pulmonary disease, CT chest showed no pulmonary embolism but focal subsegmental atelectasis versus nodule along the anterior medial left upper lobe measuring 8 mm and a left fissural nodule measuring 4 mm on image 45. Patient was admitted for acute hypoxic respiratory failure, 86% oxygen saturation on room air, Covid negative, and CT chest showing atelectasis and vague subtle ground glass opacity in the anterior left upper lobe and pulmonary nodules. Acute hypoxic respiratory failure--Resolved Most probably due to acute reactive airway disease due to a viral infection and acute bronchitis/ undiagnosed COPD with exacerbation. Covid 19 negative x 3 times. Resp panel negative, Chest x-ray no infiltrate, edema, pleural effusion. D dimer and ferritin not elevated, LDH not elevated, Procalcitonin not elevated. Treated bronchospasm and inflammation with IV steroids and antibiotics emp irically. Ruled out pulmonary embolism with CT angio Chest. Patient will need outpatient pulmonary function testing to document restrictive versus obstructive disease. Now off oxygen. Reactive Airway Disease albuterol, Symbicort, prednisone, Moxifloxacin. Pulmonary nodules History of over [id number] smoking 2 packs a day since the age of 14. Patient will need a repeat CT chest as outpatient and referral [facility] for possible biopsy to rule out malignancy. Tobacco cessation counseling has been provided as well as a nicotine patch Morbid obesity, BMI of 39.3 follow up with PMD Tobacco abuse Tobacco cessation counseling, nicotine patch Hiatal hernia Chronic Migraines, asymptomatic Depression, chronic vitamin D deficiency Supplement, vitamin D DISCHARGE MEDICATIONS: Please see below. ALLERGIES: Please see below. PHYSICAL EXAMINATION ON DISCHARGE: VITAL SIGNS: Please see below. GENERAL APPEARANCE: Awake, alert, oriented No conversational dyspnea this morning HEENT: NC/AT Moist mucous membranes, anicteric eyes. No nasal flaring. Neck: No jugular venous distention, thyromegaly, cervical lymphadenopathy. Dry mucous membranes. Pupils equally round, reactive to light. Extra muscles are intact. No stridor and examination CARDIOVASCULAR: S1, S2, sinus rhythm, no murmurs, rubs or gallops. No carotid bruits LUNGS: Diminished breath sounds bilateral expiratory wheezing, prolonged expiration. Positive use of respiratory accessory muscles. No tripod positionin g. Mild conversational dyspnea limited to 6-7 words ABDOMEN: Obese, soft, nontender, nondistended. Possible. 5. Bowel sounds 4 quadrants. No rebound, guarding, no hepatosplenomegaly EXTREMITIES: No cyanosis, clubbing or pitting edema LABORATORY DATA: Please see below. IMAGING: CT angio of chest: 1. Dependent subsegmental pulmonary atelectasis. There is some vague subtle ground-glass opacities in the anterior left upper lobe. Focal subsegmental atelectasis versus nodule along the anteromedial left upper lobe measuring 8 mm. Left fissural nodule measuring 4 mm on series 402, image 45. Recommend follow-up. 2. No filling defects in the pulmonary arteries to suggest pulmonary emboli. 3. Cholelithiasis. 4. Hepatic steatosis ACTIVITY: [As tolerated]. DIET: As tolerated DISCHARGE PLAN: Home DISPOSITION: . DISCHARGE INSTRUCTIONS: PMD in 1 week ITEMS TO FOLLOWUP ON ON OUTPATIENT: Needs PFT. Follow up Mycoplasma and Strep pneumoniae serology and urine legionella. DISCHARGE CONDITION: [Stable]. TIME SPENT ON DISCHARGE: 35 minutes. Vital Signs/I&Os Vital Signs Date Time Temp Pulse Resp B/P (MAP) Pulse Ox O2 Delivery O2 Flow Rate FiO2 02/12/20 06:00 98.5 83 22 112/63 (79) 93 Nasal Cannula 2.0 I&O- Last 24 Hours up to 6 AM 02/12/20 06:00 Intake Total 1930 ml Output Total 900 ml Balance 1030 ml Laboratory Data Labs 24H Laboratory Tests 2 02/12/20 06:11: Immature Granulocyte % (Auto) 1.3, Neutrophils (%) (Auto) 89.5H, Lymphocytes (%) (Auto) 6.6L, Monocytes (%) (Auto) 2.4, Eosinophils (%) (Auto) 0.0, Basophils (%) (Auto) 0.2, Neutrophils # (Auto) 26.1H, Lymphocytes # (Auto) 1.9, Monocytes # (Auto) 0.7, Eosinophils # (Auto) 0.0, Basophils # (Auto) 0.1, Nucleated Red Blood Cells % (auto) 0.0, Anion Gap 5L, Glomerular Filtration Rate > 60.0, Calcium Level 8.6 CBC/BMP Laboratory Tests 02/12/20 06:11 Microbiology Microbiology 02/10/20 Blood Culture - Preliminary, Resulted No growth after 24 hours . All specim... 02/10/20 Respiratory Virus Panel (PCR) ([facility]) - Final, Complete 02/10/20 Blood Culture - Preliminary, Resulted No growth after 24 hours . All specim... Discharge Medications Scheduled Budesonide/Formoterol (Symbicort 80-4.5 Mcg Inhaler) 6.9 Gm Hfa.aer.ad, 2 PUFF INH BID Ergocalciferol (Vitamin D2) (Vitamin D2) 50,000 Units Cap, 50,000 UNITS PO 1XWK, (Reported) SATURDAYS Moxifloxacin HCl (Moxifloxacin HCl) 400 Mg Tablet, 400 MG PO DAILY Prednisone (Prednisone) 20 Mg Tablet, 40 MG PO DAILY Sertraline HCl (Sertraline HCl) 50 Mg Tablet, 50 MG PO DAILY, (Reported) Scheduled PRN Albuterol Sulf (Albuterol Sulfate) 2.5 Mg/3 Ml Vial.neb, 2.5 MG INH Q4H PRN for SOB/WHEEZING, (Reported) Albuterol Sulfate (Proair Hfa) 8.5 Gm Hfa.aer.ad, 2 PUFF INH Q4H PRN for SOB/WHEEZING, (Reported) Allergies Coded Allergies: No Known Allergies (Unverified , 09/08/19) JEREMIE VERDIN MD Feb 12, 2020 13:35
[2020-02-12 14:32] VITALS: BP 131/76
[2020-02-12 17:07] LABS: HEPATITIS B CORE ANTIBODY IGG Negative (Negative); MYCOPLASMA PNEUMONIAE IgG 1010 U/mL (0-99); MYCOPLASMA PNEUMONIAE IgM <770 U/mL (0-769)
[2020-02-13 18:07] LABS: BODY FLUID CULTURE Not indicated. (.); LEGIONELLA ANTIGEN URINE Negative (Negative); ORGANISM ID Not indicated. (.); SPECIMEN SOURCE Urine (.); URINE STREP PNEUMONIAE ANTIGEN Negative (Negative)
== END 2020-02-12 15:50 | disposition home or self-care (01) | DRG 141 ==
LOC: M ED 17:18 → M ED INP 22:19 → M MS5PR 23:55
PROVIDERS: ADMIT General Practice; ATTEND Internal Medicine Nephrology
DX: J45.909 Unspecified asthma, uncomplicated (principal); J96.01 Acute respiratory failure with hypoxia; E66.01 Morbid (severe) obesity due to excess calories; J98.01 Acute bronchospasm; K44.9 Diaphragmatic hernia without obstruction or gangrene; G43.909 Migraine, unspecified, not intractable, without status migrainosus; F17.200 Nicotine dependence, unspecified, uncomplicated; F32.9 Major depressive disorder, single episode, unspecified; E55.9 Vitamin D deficiency, unspecified; R91.8 Other nonspecific abnormal finding of lung field; D72.829 Elevated white blood cell count, unspecified; J20.9 Acute bronchitis, unspecified; Z68.39 Body mass index [BMI] 39.0-39.9, adult; K80.20 Calculus of gallbladder without cholecystitis without obstruction; K21.9 Gastro-esophageal reflux disease without esophagitis; Z79.899 Other long term (current) drug therapy

== ENCOUNTER → 2021-01-28 | Outpatient (REF) | payer OTHER ==
[~2021-01-28] MED LIST changes: +ALBU8.5H; +ALBU83IN; +ALBU83IN INH; +DOXY-443; +DOXY-443 PO; +ERGO500029; +ERGO500029 PO; +MOXI1TAB PO; +PRED20TA; +PRED20TA PO; +PROAAER10 INH; +SERT50TA29; +SERT50TA29 PO; +SYMB80INH INH; -VITA50005
[2021-01-28 12:29] LABS: BASO # 0.1 10^3/uL (0.0-0.2); BASO % 0.8 % (0.0-1.0); EOS # 0.2 10^3/uL (0.0-0.5); EOS % 1.9 % (0.0-3.0); HEMOGLOBIN 16.1 g/dl (12.0-15.5); LYMPH # 4.6 10^3/uL (1.5-5.0); LYMPH % 35.3 % (24.0-44.0); MEAN CORPUSCULAR HEMOGLOBIN 28.6 pg (27.0-33.0); MEAN CORPUSCULAR HGB CONC 30.4 g/dl (32.0-36.5); MEAN CORPUSCULAR VOLUME 94.3 fl (80.0-96.0); MONO # 0.8 10^3/uL (0.0-0.8); MONO % 6.3 % (2.0-8.0); NEUTROPHILS # 7.1 10^3/uL (1.5-8.5); PLATELET COUNT, AUTOMATED 231 10^3/uL (150-450); RED BLOOD COUNT 5.62 10^6/uL (4.00-5.40)
[2021-01-28 13:09] LABS: ALBUMIN 3.5 GM/DL (3.2-5.2); ALT/SGPT 22 U/L (12-78); BILIRUBIN,TOTAL 0.4 MG/DL (0.2-1.0); BLOOD UREA NITROGEN 11 MG/DL (7-18); CARBON DIOXIDE LEVEL 31 MEQ/L (21-32); CHLORIDE LEVEL 103 MEQ/L (98-107); CHOLESTEROL LEVEL 204 MG/DL (<200); CHOLESTEROL RISK RATIO 3.923 (<5); CREATININE FOR GFR 0.76 MG/DL (0.55-1.30); GLOMERULAR FILTRATION RATE > 60.0 (>58); GLUCOSE, FASTING 106 MG/DL (70-100); HDL CHOLESTEROL 52 MG/DL (>40); LDL CHOLESTEROL 129 MG/DL (<100); NON-HDL-C 152 MG/DL; POTASSIUM SERUM 4.7 MEQ/L (3.5-5.1); SODIUM LEVEL 140 MEQ/L (136-145); TOTAL 25(OH) VITAMIN D 22.5 NG/ML (30.0-100.0); TOTAL PROTEIN 7.3 GM/DL (6.4-8.2); TRIGLYCERIDES LEVEL 116 MG/DL (<150)
== END ==
LOC: M SFHCADAM 08:13
PROVIDERS: ATTEND Physician Assistant Medical
DX: E66.01 Morbid (severe) obesity due to excess calories (principal); F17.210 Nicotine dependence, cigarettes, uncomplicated; E55.9 Vitamin D deficiency, unspecified; F32.2 Major depressive disorder, single episode, severe without psychotic features

== ENCOUNTER → 2021-01-29 | Outpatient (REF) | payer OTHER ==
[2021-01-29 17:57] LABS: MAU/CREAT RATIO 24.9 MCG/MG (0.0-30.0)
[2021-01-29 19:16] LABS: HEMOGLOBIN A1c 6.4 %
== END ==
LOC: M SFHCADAM 13:30
PROVIDERS: ATTEND Physician Assistant Medical
DX: E03.9 Hypothyroidism, unspecified (principal); R73.03 Prediabetes

== ENCOUNTER → 2021-02-03 | Outpatient (CLI) | payer OTHER ==
--- NOTE | 2021-02-04 08:17 | REP ---
INDICATION: CIGARETTE NICOTINE DEPENDECXE WITHOUT COMPLICATION COMPARISON: 02/10/2020 TECHNIQUE: Standard helical technique without intravenous contrast FINDINGS: The mediastinum and pulmonary vikas are stable. There is no mass or at there are no pleural or pericardial effusions. The imaged upper abdomen and imaged osseous structures are unchanged. Evaluation of the lung downey shows no abnormal nodules, masses, or opacities. The lung downey are clear. IMPRESSION: CT findings are within normal limits. The patient has known cholelithiasis. <Electronically signed by Don Landeros > 02/04/21 [id number]
== END ==
LOC: M RAD 17:10 → M LAB 17:10
PROVIDERS: ATTEND Physician Assistant Medical
DX: R93.89 Abnormal findings on diagnostic imaging of other specified body structures (principal); F17.210 Nicotine dependence, cigarettes, uncomplicated; K80.20 Calculus of gallbladder without cholecystitis without obstruction

== ENCOUNTER → 2021-02-03 | Outpatient (CLI) | payer OTHER ==
--- NOTE | 2021-02-03 10:48 | PFTRPT ---
Site: [facility], [address] [place] [address], [id number] ID: [id number] Name: KM SO Visit Date: 02/03/2021 Second ID: [id number] Referring Doctor: Ely Mazariegos PA-C Reviewing Doctor: Jose Miguel Daniels MD [employer] Tender: Eloise HEARN RRT Age: 50 : 1970 Sex: Female Race: Height: 64.00 Inches Weight: 230.00 Lbs BSA: 2.08 Order IDs: [id number] Requested Test(s): <RESP-PFT.PFT B/A> Diagnosis: F17.210 test meet the ATS standards for acceptability and repeatability. Pt was given four puffs of albuterol for post bronchodilator. Review Status: Not Reviewed Pre-Bronch Post-Bronch Pred Actual %Pred Actual %Chng SPIROMETRY FVC (L) 3.57 2.09 58 2.32 10 FEV1 (L) 2.84 1.35 47 1.59 17 FEV1/FVC (%) 80 64 80 68 5 FEF 25% (L/sec) 5.25 2.32 44 3.25 39 FEF 50% (L/sec) 3.96 0.96 24 1.40 46 FEF 75% (L/sec) 1.47 0.30 20 0.56 88 FEF 25-75% (L/sec) 2.81 0.74 26 1.20 63 FEF Max (L/sec) 6.78 3.45 50 4.17 21 FIVC (L) 2.14 2.23 3 FIF 50% (L/sec) 4.03 3.53 87 4.15 17 FIF Max (L/sec) 3.53 4.15 17 MVV (L/min) 98 59 60 Expiratory Time (sec) 7.24 6.00 -17 Back Extrap Vol (L) 0.07 0.05 -21 Time To FEFmax (sec) 0.090 0.071 -21 LUNG VOLUMES SVC (L) 3.29 2.25 68 IC (L) 2.23 1.77 79 ERV (L) 1.06 0.48 45 TGV (L) 2.82 4.16 147 RV (Pleth) (L) 1.76 3.68 208 TLC (Pleth) (L) 5.05 5.93 117 RV/TLC (Pleth) (%) 35 62 177 DIFFUSION DLCOunc (ml/min/mmHg) 22.89 19.44 84 DL/VA (ml/min/mmHg/L) 4.53 4.90 108 VA (L) 5.05 3.97 78 BHT (sec) 10.10 IVC (L) 2.15 TLC (SB) (L) 4.12 AIRWAYS RESISTANCE Raw (cmH2O/L/s) 1.86 1.79 96 Gaw (L/s/cmH2O) 1.03 0.57 54 sRaw (cmH2O*s) 4.76 7.55 158 sGaw (1/cmH2O*s) 0.20 0.13 67
== END ==
LOC: M CARPUL 10:25
PROVIDERS: ATTEND Physician Assistant Medical
DX: R93.89 Abnormal findings on diagnostic imaging of other specified body structures (principal); F17.210 Nicotine dependence, cigarettes, uncomplicated

== ENCOUNTER 2022-01-22 11:51 | Inpatient (IN) | payer OTHER ==
[~2022-01-22] VITALS: Ht 162.6 cm; Wt 100.8 kg
[~2022-01-22 11:51] MED LIST changes: +ALBU2.5V10; +ALBU2.5V10 INH; -ALBU83IN; -ALBU83IN INH
[2022-01-22] MEDS ORDERED: predniSONE 20 MG TAB PO ONE (13:00)
[2022-01-22] MEDS: COMBIVENT RESPIMAT 100-20MCG INHALER 4GM INH SCH ×3 (13:16→13:52)
[2022-01-22] MEDS ORDERED: PRED10TA2 PO (14:20)
[2022-01-22] MEDS: IPRATROPIUM 0.5MG/ALBUTEROL 2.5MG INH SOL UD 3ML (DUONEB) NEB SCH ×4 (15:22→19:09)
[2022-01-22] MEDS ORDERED: VITA200032 PO (16:44)
[2022-01-22] MEDS ORDERED: BUDE10.22 INH (16:44)
[2022-01-22] MEDS ORDERED: IBUP200T46 PO (16:44)
[2022-01-22] MEDS ORDERED: LEVO25TA5 PO (16:44)
[2022-01-22] MEDS ORDERED: HOME MED LIST COMPLETE! XX SCH (16:50)
[2022-01-22 17:30] LABS: BASO # 0.1 10^3/uL (0.0-0.2); BASO % 0.6 % (0.0-1.0); EOS % 0.1 % (0.0-3.0); LYMPH # 1.2 10^3/uL (1.5-5.0); LYMPH % 10.7 % (24.0-44.0); MEAN CORPUSCULAR HEMOGLOBIN 30.5 pg (27.0-33.0); MEAN CORPUSCULAR HGB CONC 31.9 g/dl (32.0-36.5); MEAN CORPUSCULAR VOLUME 95.7 fl (80.0-96.0); MONO # 0.2 10^3/uL (0.0-0.8); MONO % 1.5 % (2.0-8.0); NEUTROPHILS # 9.4 10^3/uL (1.5-8.5); NEUTROPHILS % 85.7 % (36.0-66.0); PLATELET COUNT, AUTOMATED 219 10^3/uL (150-450); RED BLOOD COUNT 4.91 10^6/uL (4.00-5.40)
[2022-01-22 18:04] LABS: BLOOD UREA NITROGEN 6 MG/DL (7-18); CALCIUM LEVEL 8.5 MG/DL (8.5-10.1); CARBON DIOXIDE LEVEL 31 MEQ/L (21-32); CHLORIDE LEVEL 103 MEQ/L (98-107); GLOMERULAR FILTRATION RATE > 60.0 (>58); GLUCOSE, FASTING 139 MG/DL (70-100); POTASSIUM SERUM 4.4 MEQ/L (3.5-5.1); SODIUM LEVEL 137 MEQ/L (136-145)
[2022-01-22] MEDS ORDERED: ALBUTEROL SULFATE 2.5 MG/0.5 ML INH NEB SOLN NEB PRN (18:40)
[2022-01-22] MEDS ORDERED: ACETAMINOPHEN TAB 650MG DOSE (2X325MG) PO PRN (18:40)
[2022-01-22] MEDS ORDERED: IBUPROFEN 200MG TAB PO PRN (18:40)
[2022-01-22] MEDS ORDERED: guaiFENesin DM LIQ 10ML UD PO PRN (18:40)
[2022-01-22] MEDS: SYMBICORT 80/4.5MCG INHALER 6GM INH SCH (19:09)
[2022-01-22 21:35] VITALS: BP 121/68
[2022-01-22] MEDS ORDERED: IBUPROFEN 600MG TAB PO PRN (22:20)
[2022-01-22] MEDS: DOCUSATE SODIUM 100MG CAPSULE PO SCH (22:35)
[2022-01-22] MEDS: guaiFENesin ER 600 MG TAB PO SCH (22:36)
[2022-01-22] MEDS: methylPREDNISolone 125MG 2ML VIAL IV SCH (22:36)
[2022-01-22] MEDS: ENOXAPARIN 40MG/0.4ML SYRINGE (J1650 PER 10MG) SC SCH (22:37)
[2022-01-22] MEDS ORDERED: NS 500 ML IV ONE (23:10)
[2022-01-22] MEDS: NS 1,000 ML IV SCH (23:41)
[2022-01-23] MEDS: IPRATROPIUM 0.5MG/ALBUTEROL 2.5MG INH SOL UD 3ML (DUONEB) NEB SCH ×6 (02:00→23:42)
[2022-01-23 02:05] VITALS: O2SAT 92
[2022-01-23] MEDS: LEVOTHYROXINE 25MCG TABLET (0.025MG) PO SCH (05:48)
[2022-01-23 06:00] VITALS: BP 122/68
[2022-01-23 06:20] LABS: HEMATOCRIT 46.5 % (36.0-47.0); HEMOGLOBIN 14.6 g/dl (12.0-15.5); MEAN CORPUSCULAR HEMOGLOBIN 30.1 pg (27.0-33.0); MEAN CORPUSCULAR HGB CONC 31.4 g/dl (32.0-36.5); MEAN CORPUSCULAR VOLUME 95.9 fl (80.0-96.0); PLATELET COUNT, AUTOMATED 232 10^3/uL (150-450); RED BLOOD COUNT 4.85 10^6/uL (4.00-5.40); WHITE BLOOD COUNT 12.9 10^3/uL (4.0-10.0)
[2022-01-23 06:34] LABS: INR 0.95; PARTIAL THROMBOPLASTIN TIME 27.1 SECONDS (24.8-34.2); PROTHROMBIN TIME 12.9 SECONDS (12.5-14.5)
[2022-01-23 06:52] LABS: BLOOD UREA NITROGEN 7 MG/DL (7-18); CALCIUM LEVEL 8.5 MG/DL (8.5-10.1); CARBON DIOXIDE LEVEL 27 MEQ/L (21-32); CHLORIDE LEVEL 104 MEQ/L (98-107); CREATININE FOR GFR 0.61 MG/DL (0.55-1.30); GLOMERULAR FILTRATION RATE > 60.0 (>58); GLUCOSE, FASTING 172 MG/DL (70-100); MAGNESIUM LEVEL 2.1 MG/DL (1.8-2.4); POTASSIUM SERUM 4.7 MEQ/L (3.5-5.1); SODIUM LEVEL 136 MEQ/L (136-145)
[2022-01-23] MEDS: SYMBICORT 80/4.5MCG INHALER 6GM INH SCH (07:21)
[2022-01-23] MEDS: DOCUSATE SODIUM 100MG CAPSULE PO SCH ×2 (09:19→20:22)
[2022-01-23] MEDS: SERTRALINE HCL 50 MG TAB PO SCH (09:19)
[2022-01-23] MEDS: guaiFENesin ER 600 MG TAB PO SCH ×2 (09:19→20:22)
[2022-01-23] MEDS: NS 1,000 ML IV SCH (09:20)
[2022-01-23] MEDS: AZITHROMYCIN 250MG TABLET PO SCH (09:20)
[2022-01-23] MEDS: methylPREDNISolone 125MG 2ML VIAL IV SCH ×2 (09:20→20:22)
[2022-01-23 14:00] VITALS: BP 105/45
[2022-01-23] MEDS ORDERED: IBUPROFEN 400MG TAB PO PRN (14:20)
[2022-01-23 14:27] VITALS: BP 140/64
[2022-01-23 20:17] VITALS: O2SAT 90
[2022-01-23] MEDS: ENOXAPARIN 40MG/0.4ML SYRINGE (J1650 PER 10MG) SC SCH (20:22)
[2022-01-23 22:00] VITALS: BP 131/59
[2022-01-24] VITALS: O2SAT 90
[2022-01-24] MEDS: IPRATROPIUM 0.5MG/ALBUTEROL 2.5MG INH SOL UD 3ML (DUONEB) NEB SCH ×5 (03:46→20:19)
[2022-01-24] MEDS: LEVOTHYROXINE 25MCG TABLET (0.025MG) PO SCH (05:13)
[2022-01-24 06:00] VITALS: BP 128/60
[2022-01-24 06:10] LABS: BASO % 0.2 % (0.0-1.0); HEMATOCRIT 45.2 % (36.0-47.0); HEMOGLOBIN 13.8 g/dl (12.0-15.5); LYMPH # 1.9 10^3/uL (1.5-5.0); LYMPH % 8.9 % (24.0-44.0); MEAN CORPUSCULAR HGB CONC 30.5 g/dl (32.0-36.5); MEAN CORPUSCULAR VOLUME 98.3 fl (80.0-96.0); MONO # 0.9 10^3/uL (0.0-0.8); MONO % 4.1 % (2.0-8.0); NEUTROPHILS % 85.7 % (36.0-66.0); PLATELET COUNT, AUTOMATED 237 10^3/uL (150-450)
[2022-01-24 06:45] LABS: BLOOD UREA NITROGEN 15 MG/DL (7-18); CALCIUM LEVEL 8.5 MG/DL (8.5-10.1); CARBON DIOXIDE LEVEL 30 MEQ/L (21-32); CHLORIDE LEVEL 104 MEQ/L (98-107); CREATININE FOR GFR 0.63 MG/DL (0.55-1.30); GLOMERULAR FILTRATION RATE > 60.0 (>58); GLUCOSE, FASTING 153 MG/DL (70-100); POTASSIUM SERUM 4.3 MEQ/L (3.5-5.1); SODIUM LEVEL 141 MEQ/L (136-145)
[2022-01-24] MEDS: AZITHROMYCIN 250MG TABLET PO SCH (08:48)
[2022-01-24] MEDS: SERTRALINE HCL 50 MG TAB PO SCH (08:49)
[2022-01-24] MEDS: methylPREDNISolone 125MG 2ML VIAL IV SCH ×2 (08:49→21:34)
[2022-01-24] MEDS: guaiFENesin ER 600 MG TAB PO SCH ×2 (08:49→21:33)
[2022-01-24] MEDS: DOCUSATE SODIUM 100MG CAPSULE PO SCH ×2 (08:49→21:33)
[2022-01-24 13:00] VITALS: O2SAT 89
[2022-01-24] MEDS: BUDESONIDE 0.5 MG/2 ML INHALATION SUSPENSION INH SCH ×2 (13:00→20:19)
[2022-01-24 14:00] VITALS: BP 114/64
[2022-01-24 15:55] VITALS: O2SAT 89
[2022-01-24 21:19] VITALS: BP 119/70
[2022-01-24] MEDS: ENOXAPARIN 40MG/0.4ML SYRINGE (J1650 PER 10MG) SC SCH (21:33)
[2022-01-25] MEDS: IPRATROPIUM 0.5MG/ALBUTEROL 2.5MG INH SOL UD 3ML (DUONEB) NEB SCH ×7 (00:27→23:30)
[2022-01-25 01:12] VITALS: O2SAT 94
[2022-01-25 05:18] VITALS: BP 123/71
[2022-01-25] MEDS: LEVOTHYROXINE 25MCG TABLET (0.025MG) PO SCH (05:25)
[2022-01-25 07:27] LABS: BASO # 0.1 10^3/uL (0.0-0.2); BASO % 0.4 % (0.0-1.0); HEMATOCRIT 45.6 % (36.0-47.0); HEMOGLOBIN 14.4 g/dl (12.0-15.5); LYMPH # 2.4 10^3/uL (1.5-5.0); LYMPH % 14.6 % (24.0-44.0); MEAN CORPUSCULAR HEMOGLOBIN 30.4 pg (27.0-33.0); MEAN CORPUSCULAR HGB CONC 31.6 g/dl (32.0-36.5); MEAN CORPUSCULAR VOLUME 96.2 fl (80.0-96.0); MONO # 0.6 10^3/uL (0.0-0.8); MONO % 3.9 % (2.0-8.0); NEUTROPHILS # 12.9 10^3/uL (1.5-8.5); NEUTROPHILS % 79.3 % (36.0-66.0); PLATELET COUNT, AUTOMATED 249 10^3/uL (150-450); RED BLOOD COUNT 4.74 10^6/uL (4.00-5.40); WHITE BLOOD COUNT 16.2 10^3/uL (4.0-10.0)
[2022-01-25 08:04] LABS: BLOOD UREA NITROGEN 16 MG/DL (7-18); CALCIUM LEVEL 8.7 MG/DL (8.5-10.1); CARBON DIOXIDE LEVEL 32 MEQ/L (21-32); CHLORIDE LEVEL 101 MEQ/L (98-107); CREATININE FOR GFR 0.64 MG/DL (0.55-1.30); GLOMERULAR FILTRATION RATE > 60.0 (>58); GLUCOSE, FASTING 129 MG/DL (70-100); POTASSIUM SERUM 4.6 MEQ/L (3.5-5.1); SODIUM LEVEL 137 MEQ/L (136-145)
[2022-01-25] MEDS: BUDESONIDE 0.5 MG/2 ML INHALATION SUSPENSION INH SCH ×2 (08:28→20:36)
[2022-01-25] MEDS: DOCUSATE SODIUM 100MG CAPSULE PO SCH ×2 (09:00→21:44)
[2022-01-25] MEDS: SERTRALINE HCL 50 MG TAB PO SCH (09:22)
[2022-01-25] MEDS: methylPREDNISolone 125MG 2ML VIAL IV SCH (09:22)
[2022-01-25] MEDS: AZITHROMYCIN 250MG TABLET PO SCH (09:22)
[2022-01-25] MEDS: guaiFENesin ER 600 MG TAB PO SCH ×2 (09:22→21:44)
[2022-01-25] MEDS: predniSONE 20 MG TAB PO SCH (13:38)
[2022-01-25 14:00] VITALS: BP 143/76
[2022-01-25 20:00] VITALS: BP 133/69
[2022-01-25 20:07] VITALS: BP 117/63
[2022-01-25] MEDS: ENOXAPARIN 40MG/0.4ML SYRINGE (J1650 PER 10MG) SC SCH (21:45)
[2022-01-26 01:49] VITALS: O2SAT 91
[2022-01-26] MEDS: IPRATROPIUM 0.5MG/ALBUTEROL 2.5MG INH SOL UD 3ML (DUONEB) NEB SCH ×3 (03:35→11:21)
[2022-01-26 05:50] VITALS: BP 121/68
[2022-01-26] MEDS: LEVOTHYROXINE 25MCG TABLET (0.025MG) PO SCH (06:28)
[2022-01-26 07:21] LABS: BASO # 0.1 10^3/uL (0.0-0.2); BASO % 0.7 % (0.0-1.0); EOS % 0.2 % (0.0-3.0); HEMATOCRIT 45.6 % (36.0-47.0); HEMOGLOBIN 14.7 g/dl (12.0-15.5); LYMPH # 5.6 10^3/uL (1.5-5.0); LYMPH % 33.1 % (24.0-44.0); MEAN CORPUSCULAR HEMOGLOBIN 30.6 pg (27.0-33.0); MEAN CORPUSCULAR HGB CONC 32.2 g/dl (32.0-36.5); MONO # 1.2 10^3/uL (0.0-0.8); MONO % 7.1 % (2.0-8.0); NEUTROPHILS # 9.5 10^3/uL (1.5-8.5); NEUTROPHILS % 56.5 % (36.0-66.0); PLATELET COUNT, AUTOMATED 245 10^3/uL (150-450); WHITE BLOOD COUNT 16.9 10^3/uL (4.0-10.0)
[2022-01-26 07:57] VITALS: BP 107/66
[2022-01-26 07:57] LABS: BLOOD UREA NITROGEN 16 MG/DL (7-18); CALCIUM LEVEL 8.5 MG/DL (8.5-10.1); CARBON DIOXIDE LEVEL 31 MEQ/L (21-32); CHLORIDE LEVEL 103 MEQ/L (98-107); CREATININE FOR GFR 0.67 MG/DL (0.55-1.30); GLOMERULAR FILTRATION RATE > 60.0 (>58); GLUCOSE, FASTING 94 MG/DL (70-100); SODIUM LEVEL 141 MEQ/L (136-145)
[2022-01-26] MEDS: BUDESONIDE 0.5 MG/2 ML INHALATION SUSPENSION INH SCH (08:40)
[2022-01-26] MEDS ORDERED: CEFDINIR 300 MG CAP (OMNICEF) PO SCH (09:00)
[2022-01-26] MEDS: guaiFENesin ER 600 MG TAB PO SCH (09:13)
[2022-01-26] MEDS: AZITHROMYCIN 250MG TABLET PO SCH (09:14)
[2022-01-26] MEDS: DOCUSATE SODIUM 100MG CAPSULE PO SCH (09:14)
[2022-01-26] MEDS: SERTRALINE HCL 50 MG TAB PO SCH (09:14)
[2022-01-26] MEDS: predniSONE 20 MG TAB PO SCH (13:24)
[2022-01-26] MEDS ORDERED: PRED20TA PO (13:26)
[2022-01-26] MEDS ORDERED: AMOX875T2 PO (13:26)
[2022-01-26] MEDS ORDERED: ALBU8.5H INH (13:26)
[2022-01-26] MEDS ORDERED: CEFD300CAP PO (13:26)
[2022-01-26] MEDS ORDERED: NICO1DIS12 TD (13:26)
[2022-01-26] MEDS ORDERED: AZIT-12 PO (13:26)
[2022-01-26] MEDS ORDERED: PRED10TA2 PO (13:26)
[2022-01-26 14:00] VITALS: BP 105/60
== END 2022-01-26 16:10 | disposition home health service (06) | DRG 140 ==
LOC: M ED 11:51 → M ED INP 18:38 → M MS5PR 21:40
PROVIDERS: ADMIT Family Medicine; ATTEND Family Medicine
DX: J44.1 Chronic obstructive pulmonary disease with (acute) exacerbation (principal); J96.01 Acute respiratory failure with hypoxia; E87.20 Acidosis, unspecified; G43.909 Migraine, unspecified, not intractable, without status migrainosus; E03.9 Hypothyroidism, unspecified; F32.A Depression, unspecified; F41.9 Anxiety disorder, unspecified; F17.210 Nicotine dependence, cigarettes, uncomplicated; D72.829 Elevated white blood cell count, unspecified; Z79.890 Hormone replacement therapy; Z79.899 Other long term (current) drug therapy; Z20.822 Contact with and (suspected) exposure to COVID-19; B34.8 Other viral infections of unspecified site; J06.9 Acute upper respiratory infection, unspecified; Z71.6 Tobacco abuse counseling

== ENCOUNTER → 2022-06-09 | Outpatient (REF) | payer OTHER ==
[~2022-06-09] MED LIST changes: +ALBU8.5H INH; +AMOX875T2 PO; +AZIT-12 PO; +BUDE10.22 INH; +CEFD300CAP PO; +IBUP200T46 PO; +LEVO25TA5 PO; +NICO1DIS12 TD; +PRED10TA2 PO; +VITA200032 PO
[2022-06-09 16:12] LABS: BASO # 0.1 10^3/uL (0.0-0.2); BASO % 1.1 % (0.0-1.0); EOS # 0.2 10^3/uL (0.0-0.5); EOS % 2.3 % (0.0-3.0); HEMATOCRIT 52.9 % (36.0-47.0); HEMOGLOBIN 16.6 g/dl (12.0-15.5); LYMPH # 3.4 10^3/uL (1.5-5.0); LYMPH % 32.6 % (24.0-44.0); MEAN CORPUSCULAR HEMOGLOBIN 29.6 pg (27.0-33.0); MEAN CORPUSCULAR HGB CONC 31.4 g/dl (32.0-36.5); MEAN CORPUSCULAR VOLUME 94.3 fl (80.0-96.0); MONO # 0.7 10^3/uL (0.0-0.8); MONO % 6.3 % (2.0-8.0); NEUTROPHILS % 56.5 % (36.0-66.0); PLATELET COUNT, AUTOMATED 250 10^3/uL (150-450); RED BLOOD COUNT 5.61 10^6/uL (4.00-5.40); WHITE BLOOD COUNT 10.6 10^3/uL (4.0-10.0)
[2022-06-09 16:44] LABS: ALBUMIN 3.3 G/DL (3.2-5.2); ALKALINE PHOSPHATASE 86 U/L (46-116); ALT/SGPT 24 U/L (7.0-40); AST/SGOT 19 U/L (<34); BILIRUBIN,TOTAL 0.3 MG/DL (0.3-1.2); BLOOD UREA NITROGEN 15 MG/DL (9-23); CALCIUM LEVEL 8.8 MG/DL (8.5-10.1); CARBON DIOXIDE LEVEL 34 MMOL/L (20-31); CHLORIDE LEVEL 103 MMOL/L (98-107); CHOLESTEROL LEVEL 200 MG/DL (<200); CREATININE FOR GFR 0.56 MG/DL (0.55-1.30); FREE T4 0.89 NG/DL (0.89-1.76); GLOMERULAR FILTRATION RATE > 60.0 (>58); GLUCOSE, FASTING 147 MG/DL (60-100); HDL CHOLESTEROL 64.4 MG/DL (>40); NON-HDL-C 135.6 MG/DL; SODIUM LEVEL 139 MMOL/L (136-145); THYROID STIMULATING HORMONE 4.304 uIU/ML (0.55-4.78); TOTAL PROTEIN 6.8 G/DL (5.7-8.2); TRIGLYCERIDES LEVEL 123 MG/DL (<150)
[2022-06-09 16:46] LABS: TOTAL 25(OH) VITAMIN D 26.1 NG/ML (20.0-100.0)
== END ==
LOC: M SFHCADAM 13:48
PROVIDERS: ATTEND Physician Assistant Medical
DX: R60.1 Generalized edema (principal); F17.210 Nicotine dependence, cigarettes, uncomplicated; R53.82 Chronic fatigue, unspecified; E03.9 Hypothyroidism, unspecified

== ENCOUNTER → 2022-06-30 | Outpatient (REF) | payer OTHER ==
[2022-06-30 15:38] LABS: BLOOD UREA NITROGEN 18 MG/DL (9-23); CALCIUM LEVEL 8.3 MG/DL (8.5-10.1); CARBON DIOXIDE LEVEL 29 MMOL/L (20-31); CHLORIDE LEVEL 102 MMOL/L (98-107); CREATININE FOR GFR 0.67 MG/DL (0.55-1.30); GLOMERULAR FILTRATION RATE > 60.0 (>51); GLUCOSE, FASTING 131 MG/DL (60-100); POTASSIUM SERUM 4.6 MMOL/L (3.5-5.1); SODIUM LEVEL 139 MMOL/L (136-145)
[2022-06-30 15:58] LABS: HEMOGLOBIN A1c 6.3 % (4.0-6.0)
== END ==
LOC: M SFHCADAM 10:08
PROVIDERS: ATTEND Physician Assistant Medical
DX: R73.01 Impaired fasting glucose (principal); R60.1 Generalized edema

== ENCOUNTER → 2022-07-08 | Outpatient (CLI) | payer OTHER | LOC: M CARPUL 14:39 | PROVIDERS: ATTEND Physician Assistant Medical | DX: R60.1 Generalized edema (principal); I34.0 Nonrheumatic mitral (valve) insufficiency ==

== ENCOUNTER 2022-08-09 16:03 | Inpatient (IN) | payer OTHER ==
[~2022-08-09] VITALS: Ht 162.6 cm; Wt 115.3 kg
[2022-08-09 17:30] VITALS: BP 160/77
[2022-08-09] MEDS ORDERED: FUROSEMIDE 20MG/2ML VIAL IV ONE ×2 (18:10→19:50)
[2022-08-09 18:55] LABS: HEMATOCRIT 52.8 % (36.0-47.0); HEMOGLOBIN 16.7 g/dl (12.0-15.5); MEAN CORPUSCULAR HEMOGLOBIN 30.3 pg (27.0-33.0); MEAN CORPUSCULAR HGB CONC 31.6 g/dl (32.0-36.5); MEAN CORPUSCULAR VOLUME 95.7 fl (80.0-96.0); PLATELET COUNT, AUTOMATED 217 10^3/uL (150-450); RED BLOOD COUNT 5.52 10^6/uL (4.00-5.40); WHITE BLOOD COUNT 12.2 10^3/uL (4.0-10.0)
[2022-08-09 19:23] LABS: ALBUMIN 3.1 G/DL (3.2-5.2); ALKALINE PHOSPHATASE 84 U/L (46-116); ALT/SGPT 16 U/L (7.0-40); AST/SGOT 17 U/L (<34); BILIRUBIN,TOTAL 0.2 MG/DL (0.3-1.2); BLOOD UREA NITROGEN 15 MG/DL (9-23); CALCIUM LEVEL 8.2 MG/DL (8.5-10.1); CARBON DIOXIDE LEVEL 30 MMOL/L (20-31); CHLORIDE LEVEL 104 MMOL/L (98-107); CREATININE FOR GFR 0.59 MG/DL (0.55-1.30); GLOMERULAR FILTRATION RATE > 60.0 (>51); GLUCOSE, FASTING 106 MG/DL (60-100); POTASSIUM SERUM 4.1 MMOL/L (3.5-5.1); SODIUM LEVEL 141 MMOL/L (136-145); TOTAL PROTEIN 6.4 G/DL (5.7-8.2)
[2022-08-09] MEDS: NICOTINE 14 MG/24 HR TRANSDERMAL TD SCH (20:00)
[2022-08-09 20:35] VITALS: BP 126/66
[2022-08-09] MEDS: ACETAMINOPHEN TAB 650MG DOSE (2X325MG) PO PRN (23:32)
[2022-08-10] MEDS ORDERED: ALBU8.5H INH (00:24)
[2022-08-10] MEDS ORDERED: FURO40TA2 PO (00:24)
[2022-08-10] MEDS ORDERED: HOME MED LIST COMPLETE! XX SCH (00:25)
[2022-08-10] MEDS ORDERED: ALBUTEROL 90 MCG/ACT 8GM HFA INHALER INH PRN (02:00)
[2022-08-10] MEDS ORDERED: PROCHLORPERAZINE 10MG 2ML VIAL IV ONE (03:00)
[2022-08-10] MEDS ORDERED: diphenhydrAMINE 50MG/ML VIAL IV ONE (03:00)
[2022-08-10 05:57] VITALS: BP 133/74
[2022-08-10] MEDS: ACETAMINOPHEN TAB 650MG DOSE (2X325MG) PO PRN (06:01)
[2022-08-10] MEDS: FUROSEMIDE 40MG/4ML VIAL IV SCH ×3 (06:02→21:19)
[2022-08-10] MEDS: LEVOTHYROXINE 25MCG TABLET (0.025MG) PO SCH (06:02)
[2022-08-10 06:11] LABS: HEMATOCRIT 53.7 % (36.0-47.0); HEMOGLOBIN 16.4 g/dl (12.0-15.5); MEAN CORPUSCULAR HEMOGLOBIN 29.8 pg (27.0-33.0); MEAN CORPUSCULAR HGB CONC 30.5 g/dl (32.0-36.5); MEAN CORPUSCULAR VOLUME 97.5 fl (80.0-96.0); PLATELET COUNT, AUTOMATED 224 10^3/uL (150-450); RED BLOOD COUNT 5.51 10^6/uL (4.00-5.40); WHITE BLOOD COUNT 12.8 10^3/uL (4.0-10.0)
[2022-08-10 06:39] LABS: ALBUMIN 3.2 G/DL (3.2-5.2); ALKALINE PHOSPHATASE 83 U/L (46-116); ALT/SGPT 17 U/L (7.0-40); AST/SGOT 16 U/L (<34); BILIRUBIN,TOTAL 0.3 MG/DL (0.3-1.2); BLOOD UREA NITROGEN 13 MG/DL (9-23); CALCIUM LEVEL 8.8 MG/DL (8.5-10.1); CARBON DIOXIDE LEVEL 34 MMOL/L (20-31); CHLORIDE LEVEL 101 MMOL/L (98-107); CREATININE FOR GFR 0.59 MG/DL (0.55-1.30); GLOMERULAR FILTRATION RATE > 60.0 (>51); GLUCOSE, FASTING 126 MG/DL (60-100); MAGNESIUM LEVEL 1.9 MG/DL (1.8-2.4); POTASSIUM SERUM 4.6 MMOL/L (3.5-5.1); SODIUM LEVEL 139 MMOL/L (136-145); TOTAL PROTEIN 6.4 G/DL (5.7-8.2)
[2022-08-10] MEDS: SYMBICORT 80/4.5MCG INHALER 6GM INH SCH ×2 (07:25→21:58)
[2022-08-10] MEDS: SERTRALINE HCL 50 MG TAB PO SCH (08:06)
[2022-08-10] MEDS: HEPARIN SOD (PORCINE) 5000UNITS/ML 1ML VIAL/SYRINGE SQ SCH ×3 (08:06→21:20)
[2022-08-10] MEDS ORDERED: ISOVUE-370 76% 100ML VIAL As Ordered ONE (12:04)
[2022-08-10 14:00] VITALS: BP 108/66
[2022-08-10 21:00] VITALS: BP 114/65
[2022-08-10] MEDS: NICOTINE 14 MG/24 HR TRANSDERMAL TD SCH (21:18)
[2022-08-11] MEDS: ACETAMINOPHEN TAB 650MG DOSE (2X325MG) PO PRN ×2 (01:36→05:45)
[2022-08-11] MEDS: LEVOTHYROXINE 25MCG TABLET (0.025MG) PO SCH (05:45)
[2022-08-11] MEDS: HEPARIN SOD (PORCINE) 5000UNITS/ML 1ML VIAL/SYRINGE SQ SCH ×3 (05:46→21:58)
[2022-08-11] MEDS: FUROSEMIDE 40MG/4ML VIAL IV SCH ×3 (05:46→21:58)
[2022-08-11 06:00] VITALS: BP 108/62
[2022-08-11 06:23] LABS: BASO # 0.1 10^3/uL (0.0-0.2); BASO % 0.8 % (0.0-1.0); EOS # 0.1 10^3/uL (0.0-0.5); HEMATOCRIT 53.3 % (36.0-47.0); HEMOGLOBIN 16.6 g/dl (12.0-15.5); LYMPH # 2.6 10^3/uL (1.5-5.0); LYMPH % 22.1 % (24.0-44.0); MEAN CORPUSCULAR HEMOGLOBIN 29.6 pg (27.0-33.0); MEAN CORPUSCULAR HGB CONC 31.1 g/dl (32.0-36.5); MEAN CORPUSCULAR VOLUME 95.2 fl (80.0-96.0); MONO # 0.7 10^3/uL (0.0-0.8); MONO % 5.9 % (2.0-8.0); NEUTROPHILS # 8.2 10^3/uL (1.5-8.5); NEUTROPHILS % 69.4 % (36.0-66.0); PLATELET COUNT, AUTOMATED 217 10^3/uL (150-450); WHITE BLOOD COUNT 11.8 10^3/uL (4.0-10.0)
[2022-08-11 07:04] LABS: ALBUMIN 3.1 G/DL (3.2-5.2); ALKALINE PHOSPHATASE 85 U/L (46-116); ALT/SGPT 18 U/L (7.0-40); AST/SGOT 15 U/L (<34); BILIRUBIN,TOTAL 0.5 MG/DL (0.3-1.2); BLOOD UREA NITROGEN 14 MG/DL (9-23); CALCIUM LEVEL 8.4 MG/DL (8.5-10.1); CARBON DIOXIDE LEVEL 36 MMOL/L (20-31); CHLORIDE LEVEL 99 MMOL/L (98-107); CREATININE FOR GFR 0.62 MG/DL (0.55-1.30); GLOMERULAR FILTRATION RATE > 60.0 (>51); GLUCOSE, FASTING 125 MG/DL (60-100); MAGNESIUM LEVEL 1.8 MG/DL (1.8-2.4); POTASSIUM SERUM 4.1 MMOL/L (3.5-5.1); SODIUM LEVEL 138 MMOL/L (136-145); TOTAL PROTEIN 6.5 G/DL (5.7-8.2)
[2022-08-11] MEDS: SYMBICORT 80/4.5MCG INHALER 6GM INH SCH ×2 (07:42→21:29)
[2022-08-11] MEDS: SERTRALINE HCL 50 MG TAB PO SCH (09:28)
[2022-08-11] MEDS ORDERED: methylPREDNISolone 125MG 2ML VIAL IV ONE (13:00)
[2022-08-11 14:00] VITALS: BP 124/74
[2022-08-11 14:13] LABS: ABG BASE EXCESS 8.5 (-2.0-2.0); ABG HCO3 35.5 MMOL/L (22.0-26.0); ABG O2 SATURATION 93.3 % (95.0-99.0); ABG PARTIAL PRESSURE CO2 56.3 mmHg (35.0-45.0); ABG PARTIAL PRESSURE O2 63.8 mmHg (75.0-100.0); ABG STANDARD HCO3 32.2 MMOL/L. (22.0-26.0); ABG TOTAL CO2 37.3 MMOL/L (22.0-29.0); ABG pH (ARTERIAL) 7.418 UNITS (7.350-7.450)
[2022-08-11] MEDS: IPRATROPIUM 0.5MG/ALBUTEROL 2.5MG INH SOL UD 3ML (DUONEB) NEB SCH ×2 (15:03→21:30)
[2022-08-11 20:55] VITALS: BP 110/70
[2022-08-11] MEDS: NICOTINE 14 MG/24 HR TRANSDERMAL TD SCH (21:59)
[2022-08-12] MEDS: FUROSEMIDE 40MG/4ML VIAL IV SCH ×4 (05:27→21:53)
[2022-08-12] MEDS: HEPARIN SOD (PORCINE) 5000UNITS/ML 1ML VIAL/SYRINGE SQ SCH ×3 (05:27→21:49)
[2022-08-12] MEDS: LEVOTHYROXINE 25MCG TABLET (0.025MG) PO SCH (05:27)
[2022-08-12 06:17] VITALS: BP 110/71
[2022-08-12 06:47] LABS: BASO % 0.3 % (0.0-1.0); HEMATOCRIT 53.3 % (36.0-47.0); LYMPH # 1.9 10^3/uL (1.5-5.0); LYMPH % 12.6 % (24.0-44.0); MEAN CORPUSCULAR HEMOGLOBIN 29.9 pg (27.0-33.0); MEAN CORPUSCULAR HGB CONC 31.9 g/dl (32.0-36.5); MEAN CORPUSCULAR VOLUME 93.7 fl (80.0-96.0); MONO # 0.8 10^3/uL (0.0-0.8); NEUTROPHILS # 12.5 10^3/uL (1.5-8.5); NEUTROPHILS % 81.6 % (36.0-66.0); PLATELET COUNT, AUTOMATED 245 10^3/uL (150-450); RED BLOOD COUNT 5.69 10^6/uL (4.00-5.40); WHITE BLOOD COUNT 15.3 10^3/uL (4.0-10.0)
[2022-08-12 07:17] LABS: ALBUMIN 3.3 G/DL (3.2-5.2); ALKALINE PHOSPHATASE 87 U/L (46-116); ALT/SGPT 19 U/L (7.0-40); AST/SGOT 16 U/L (<34); BILIRUBIN,TOTAL 0.4 MG/DL (0.3-1.2); BLOOD UREA NITROGEN 15 MG/DL (9-23); CARBON DIOXIDE LEVEL 36 MMOL/L (20-31); CHLORIDE LEVEL 97 MMOL/L (98-107); CREATININE FOR GFR 0.53 MG/DL (0.55-1.30); GLOMERULAR FILTRATION RATE > 60.0 (>51); GLUCOSE, FASTING 123 MG/DL (60-100); MAGNESIUM LEVEL 2.1 MG/DL (1.8-2.4); POTASSIUM SERUM 3.9 MMOL/L (3.5-5.1); SODIUM LEVEL 138 MMOL/L (136-145)
[2022-08-12] MEDS: IPRATROPIUM 0.5MG/ALBUTEROL 2.5MG INH SOL UD 3ML (DUONEB) NEB SCH ×3 (07:32→23:45)
[2022-08-12] MEDS: SYMBICORT 80/4.5MCG INHALER 6GM INH SCH ×2 (07:32→20:45)
[2022-08-12] MEDS: SERTRALINE HCL 50 MG TAB PO SCH (08:58)
[2022-08-12 14:00] VITALS: BP 113/70
[2022-08-12] MEDS ORDERED: SODIUM CHLORIDE 0.9% NASAL GEL 15GM (AYR) PRN (14:40)
[2022-08-12] MEDS: NICOTINE 14 MG/24 HR TRANSDERMAL TD SCH (20:39)
[2022-08-12 20:50] VITALS: BP 105/61
[2022-08-13] MEDS: LEVOTHYROXINE 25MCG TABLET (0.025MG) PO SCH (05:45)
[2022-08-13] MEDS: FUROSEMIDE 40MG/4ML VIAL IV SCH ×3 (05:45→22:11)
[2022-08-13] MEDS: ACETAMINOPHEN TAB 650MG DOSE (2X325MG) PO PRN (05:45)
[2022-08-13] MEDS: HEPARIN SOD (PORCINE) 5000UNITS/ML 1ML VIAL/SYRINGE SQ SCH ×3 (05:46→22:11)
[2022-08-13 05:50] LABS: BASO # 0.1 10^3/uL (0.0-0.2); EOS # 0.2 10^3/uL (0.0-0.5); EOS % 1.4 % (0.0-3.0); HEMATOCRIT 53.7 % (36.0-47.0); HEMOGLOBIN 16.7 g/dl (12.0-15.5); LYMPH # 2.9 10^3/uL (1.5-5.0); LYMPH % 25.3 % (24.0-44.0); MEAN CORPUSCULAR HEMOGLOBIN 29.7 pg (27.0-33.0); MEAN CORPUSCULAR HGB CONC 31.1 g/dl (32.0-36.5); MEAN CORPUSCULAR VOLUME 95.4 fl (80.0-96.0); MONO # 0.9 10^3/uL (0.0-0.8); MONO % 7.9 % (2.0-8.0); NEUTROPHILS # 7.2 10^3/uL (1.5-8.5); NEUTROPHILS % 63.4 % (36.0-66.0); PLATELET COUNT, AUTOMATED 223 10^3/uL (150-450); RED BLOOD COUNT 5.63 10^6/uL (4.00-5.40); WHITE BLOOD COUNT 11.3 10^3/uL (4.0-10.0)
[2022-08-13 06:14] LABS: ALBUMIN 3.2 G/DL (3.2-5.2); ALKALINE PHOSPHATASE 81 U/L (46-116); ALT/SGPT 19 U/L (7.0-40); AST/SGOT 15 U/L (<34); BILIRUBIN,TOTAL 0.5 MG/DL (0.3-1.2); BLOOD UREA NITROGEN 19 MG/DL (9-23); CALCIUM LEVEL 8.8 MG/DL (8.5-10.1); CARBON DIOXIDE LEVEL 36 MMOL/L (20-31); CHLORIDE LEVEL 98 MMOL/L (98-107); CREATININE FOR GFR 0.62 MG/DL (0.55-1.30); GLOMERULAR FILTRATION RATE > 60.0 (>51); GLUCOSE, FASTING 107 MG/DL (60-100); POTASSIUM SERUM 3.6 MMOL/L (3.5-5.1); SODIUM LEVEL 139 MMOL/L (136-145); TOTAL PROTEIN 6.6 G/DL (5.7-8.2)
[2022-08-13] MEDS: SYMBICORT 80/4.5MCG INHALER 6GM INH SCH ×2 (07:49→19:42)
[2022-08-13] MEDS: IPRATROPIUM 0.5MG/ALBUTEROL 2.5MG INH SOL UD 3ML (DUONEB) NEB SCH ×4 (07:53→23:27)
[2022-08-13] MEDS: SERTRALINE HCL 50 MG TAB PO SCH (08:57)
[2022-08-13 14:00] VITALS: BP 111/56
[2022-08-13] MEDS: NICOTINE 14 MG/24 HR TRANSDERMAL TD SCH (20:20)
[2022-08-13 20:50] VITALS: BP 115/73
[2022-08-14 04:27] LABS: BASO # 0.1 10^3/uL (0.0-0.2); BASO % 0.9 % (0.0-1.0); EOS # 0.2 10^3/uL (0.0-0.5); EOS % 1.8 % (0.0-3.0); HEMATOCRIT 53.1 % (36.0-47.0); HEMOGLOBIN 16.5 g/dl (12.0-15.5); LYMPH % 23.3 % (24.0-44.0); MEAN CORPUSCULAR HEMOGLOBIN 29.6 pg (27.0-33.0); MEAN CORPUSCULAR HGB CONC 31.1 g/dl (32.0-36.5); MEAN CORPUSCULAR VOLUME 95.2 fl (80.0-96.0); MONO # 1.1 10^3/uL (0.0-0.8); MONO % 8.3 % (2.0-8.0); NEUTROPHILS # 8.2 10^3/uL (1.5-8.5); NEUTROPHILS % 64.6 % (36.0-66.0); PLATELET COUNT, AUTOMATED 225 10^3/uL (150-450); RED BLOOD COUNT 5.58 10^6/uL (4.00-5.40); WHITE BLOOD COUNT 12.7 10^3/uL (4.0-10.0)
[2022-08-14 04:51] LABS: ALBUMIN 3.3 G/DL (3.2-5.2); ALKALINE PHOSPHATASE 83 U/L (46-116); ALT/SGPT 22 U/L (7.0-40); AST/SGOT 19 U/L (<34); BILIRUBIN,TOTAL 0.5 MG/DL (0.3-1.2); BLOOD UREA NITROGEN 17 MG/DL (9-23); CALCIUM LEVEL 8.7 MG/DL (8.5-10.1); CARBON DIOXIDE LEVEL 37 MMOL/L (20-31); CHLORIDE LEVEL 97 MMOL/L (98-107); CREATININE FOR GFR 0.63 MG/DL (0.55-1.30); GLOMERULAR FILTRATION RATE > 60.0 (>51); GLUCOSE, FASTING 126 MG/DL (60-100); POTASSIUM SERUM 3.6 MMOL/L (3.5-5.1); SODIUM LEVEL 135 MMOL/L (136-145); TOTAL PROTEIN 6.7 G/DL (5.7-8.2)
[2022-08-14 05:00] VITALS: BP 110/57
[2022-08-14] MEDS: LEVOTHYROXINE 25MCG TABLET (0.025MG) PO SCH (05:36)
[2022-08-14] MEDS: FUROSEMIDE 40MG/4ML VIAL IV SCH ×3 (05:36→21:20)
[2022-08-14] MEDS: HEPARIN SOD (PORCINE) 5000UNITS/ML 1ML VIAL/SYRINGE SQ SCH ×3 (05:36→21:20)
[2022-08-14] MEDS: IPRATROPIUM 0.5MG/ALBUTEROL 2.5MG INH SOL UD 3ML (DUONEB) NEB SCH ×3 (08:07→23:33)
[2022-08-14] MEDS: SYMBICORT 80/4.5MCG INHALER 6GM INH SCH ×2 (08:08→20:27)
[2022-08-14] MEDS: SERTRALINE HCL 50 MG TAB PO SCH (08:45)
[2022-08-14] MEDS: OMEPRAZOLE 20MG CAP PO SCH (09:00)
[2022-08-14] MEDS: predniSONE 20 MG TAB PO SCH (09:00)
[2022-08-14] MEDS ORDERED: methylPREDNISolone 125MG 2ML VIAL IV ONE (09:00)
[2022-08-14 14:00] VITALS: BP 113/61
[2022-08-14 20:50] VITALS: BP 115/70
[2022-08-14] MEDS: NICOTINE 14 MG/24 HR TRANSDERMAL TD SCH (21:20)
[2022-08-15] MEDS: FUROSEMIDE 40MG/4ML VIAL IV SCH ×2 (05:44→17:54)
[2022-08-15] MEDS: LEVOTHYROXINE 25MCG TABLET (0.025MG) PO SCH (05:44)
[2022-08-15] MEDS: HEPARIN SOD (PORCINE) 5000UNITS/ML 1ML VIAL/SYRINGE SQ SCH ×3 (05:44→21:12)
[2022-08-15 06:00] VITALS: BP 119/71
[2022-08-15 06:16] LABS: BASO # 0.1 10^3/uL (0.0-0.2); BASO % 0.4 % (0.0-1.0); EOS # 0.1 10^3/uL (0.0-0.5); EOS % 0.3 % (0.0-3.0); HEMATOCRIT 51.6 % (36.0-47.0); HEMOGLOBIN 16.7 g/dl (12.0-15.5); LYMPH # 3.1 10^3/uL (1.5-5.0); LYMPH % 16.9 % (24.0-44.0); MEAN CORPUSCULAR HEMOGLOBIN 30.4 pg (27.0-33.0); MEAN CORPUSCULAR HGB CONC 32.4 g/dl (32.0-36.5); MEAN CORPUSCULAR VOLUME 93.8 fl (80.0-96.0); MONO # 1.2 10^3/uL (0.0-0.8); MONO % 6.5 % (2.0-8.0); NEUTROPHILS # 13.8 10^3/uL (1.5-8.5); PLATELET COUNT, AUTOMATED 237 10^3/uL (150-450); WHITE BLOOD COUNT 18.4 10^3/uL (4.0-10.0)
[2022-08-15 06:48] LABS: ALBUMIN 3.1 G/DL (3.2-5.2); ALKALINE PHOSPHATASE 83 U/L (46-116); ALT/SGPT 24 U/L (7.0-40); AST/SGOT 17 U/L (<34); BILIRUBIN,TOTAL 0.6 MG/DL (0.3-1.2); BLOOD UREA NITROGEN 15 MG/DL (9-23); CALCIUM LEVEL 9.1 MG/DL (8.5-10.1); CARBON DIOXIDE LEVEL 36 MMOL/L (20-31); CHLORIDE LEVEL 97 MMOL/L (98-107); CREATININE FOR GFR 0.53 MG/DL (0.55-1.30); GLOMERULAR FILTRATION RATE > 60.0 (>51); GLUCOSE, FASTING 127 MG/DL (60-100); POTASSIUM SERUM 3.7 MMOL/L (3.5-5.1); SODIUM LEVEL 137 MMOL/L (136-145); TOTAL PROTEIN 6.6 G/DL (5.7-8.2)
[2022-08-15] MEDS: SYMBICORT 80/4.5MCG INHALER 6GM INH SCH ×2 (07:30→19:21)
[2022-08-15] MEDS: IPRATROPIUM 0.5MG/ALBUTEROL 2.5MG INH SOL UD 3ML (DUONEB) NEB SCH ×3 (07:30→23:23)
[2022-08-15] MEDS: predniSONE 20 MG TAB PO SCH (08:52)
[2022-08-15] MEDS: SERTRALINE HCL 50 MG TAB PO SCH (08:52)
[2022-08-15] MEDS: OMEPRAZOLE 20MG CAP PO SCH (08:52)
[2022-08-15 14:00] VITALS: BP 118/62
[2022-08-15 17:53] VITALS: BP 114/63
[2022-08-15 20:40] VITALS: BP 114/64
[2022-08-15] MEDS: NICOTINE 14 MG/24 HR TRANSDERMAL TD SCH (21:12)
[2022-08-16] MEDS: LEVOTHYROXINE 25MCG TABLET (0.025MG) PO SCH (05:44)
[2022-08-16] MEDS: FUROSEMIDE 40MG/4ML VIAL IV SCH (05:44)
[2022-08-16 05:45] VITALS: BP_SYST 115; BP_DIAS 17; BP_DIAS 67
[2022-08-16] MEDS: HEPARIN SOD (PORCINE) 5000UNITS/ML 1ML VIAL/SYRINGE SQ SCH ×2 (05:45→13:28)
[2022-08-16 06:26] LABS: HEMATOCRIT 53.4 % (36.0-47.0); HEMOGLOBIN 16.9 g/dl (12.0-15.5); MEAN CORPUSCULAR HEMOGLOBIN 30.1 pg (27.0-33.0); MEAN CORPUSCULAR HGB CONC 31.6 g/dl (32.0-36.5); PLATELET COUNT, AUTOMATED 219 10^3/uL (150-450); RED BLOOD COUNT 5.62 10^6/uL (4.00-5.40); WHITE BLOOD COUNT 15.3 10^3/uL (4.0-10.0)
[2022-08-16 06:57] LABS: ALBUMIN 3.2 G/DL (3.2-5.2); ALKALINE PHOSPHATASE 81 U/L (46-116); ALT/SGPT 26 U/L (7.0-40); AST/SGOT 19 U/L (<34); BILIRUBIN,TOTAL 0.6 MG/DL (0.3-1.2); BLOOD UREA NITROGEN 21 MG/DL (9-23); CALCIUM LEVEL 8.9 MG/DL (8.5-10.1); CARBON DIOXIDE LEVEL 37 MMOL/L (20-31); CHLORIDE LEVEL 96 MMOL/L (98-107); CREATININE FOR GFR 0.62 MG/DL (0.55-1.30); GLOMERULAR FILTRATION RATE > 60.0 (>51); GLUCOSE, FASTING 97 MG/DL (60-100); POTASSIUM SERUM 3.6 MMOL/L (3.5-5.1); SODIUM LEVEL 138 MMOL/L (136-145); TOTAL PROTEIN 6.6 G/DL (5.7-8.2)
[2022-08-16] MEDS ORDERED: POTASSIUM CHLORIDE 10MEQ SR TABLET PO ONE (07:25)
[2022-08-16 07:29] LABS: ATYPICAL LYMPH 7 % (0-5); EOSINOPHILS 1 % (0-3); LYMPHOCYTES 25 % (16-44); MONOCYTES 2 % (0-5); NEUTROPHILS 65 % (28-66); PLATELET ESTIMATE NORMAL (NORMAL)
[2022-08-16] MEDS: SYMBICORT 80/4.5MCG INHALER 6GM INH SCH (07:44)
[2022-08-16] MEDS: IPRATROPIUM 0.5MG/ALBUTEROL 2.5MG INH SOL UD 3ML (DUONEB) NEB SCH (07:45)
[2022-08-16] MEDS: SERTRALINE HCL 50 MG TAB PO SCH (08:54)
[2022-08-16] MEDS: OMEPRAZOLE 20MG CAP PO SCH (08:54)
[2022-08-16] MEDS: predniSONE 20 MG TAB PO SCH (08:54)
[2022-08-16] MEDS ORDERED: PRED20TA PO ×2 (11:42→11:54)
[2022-08-16] MEDS ORDERED: IPRA0.00 INH (11:54)
[2022-08-16] MEDS ORDERED: POTA-151 PO (11:54)
[2022-08-16] MEDS ORDERED: MAGN400T35 PO ×2 (11:54→11:55)
[2022-08-16] MEDS ORDERED: METO25TA PO (11:54)
== END 2022-08-16 13:53 | disposition home or self-care (01) | DRG 194 ==
LOC: M MSPAV 16:54 → OBSVTOIN 08-10 12:03
PROVIDERS: ADMIT Internal Medicine; ATTEND Internal Medicine
PROC: B246ZZZ Ultrasonography of Right and Left Heart (ICD-10-PCS; principal; 2022-08-11)
DX: I50.33 Acute on chronic diastolic (congestive) heart failure (principal); J96.01 Acute respiratory failure with hypoxia; E66.2 Morbid (severe) obesity with alveolar hypoventilation; Z68.41 Body mass index [BMI] 40.0-44.9, adult; J44.9 Chronic obstructive pulmonary disease, unspecified; E03.9 Hypothyroidism, unspecified; G43.909 Migraine, unspecified, not intractable, without status migrainosus; F17.210 Nicotine dependence, cigarettes, uncomplicated; F32.A Depression, unspecified; F41.9 Anxiety disorder, unspecified; Z79.890 Hormone replacement therapy; Z79.899 Other long term (current) drug therapy; Z79.2 Long term (current) use of antibiotics; Z79.52 Long term (current) use of systemic steroids; Z20.822 Contact with and (suspected) exposure to COVID-19

== ENCOUNTER → 2022-08-19 | Outpatient (CLI) | payer OTHER ==
[~2022-08-19] MED LIST changes: +FURO40TA2 PO; +IPRA0.00 INH; +MAGN400T35 PO; +METO25TA PO; +POTA-151 PO
== END ==
LOC: M SLEEP 20:00
PROVIDERS: ATTEND Physician Assistant
DX: G47.33 Obstructive sleep apnea (adult) (pediatric) (principal)

== ENCOUNTER → 2022-08-23 | Outpatient (REF) | payer OTHER ==
[2022-08-23 17:29] LABS: BLOOD UREA NITROGEN 14 MG/DL (9-23); CALCIUM LEVEL 8.4 MG/DL (8.5-10.1); CARBON DIOXIDE LEVEL 32 MMOL/L (20-31); CHLORIDE LEVEL 100 MMOL/L (98-107); CREATININE FOR GFR 0.57 MG/DL (0.55-1.30); GLOMERULAR FILTRATION RATE > 60.0 (>51); GLUCOSE, FASTING 222 MG/DL (60-100); POTASSIUM SERUM 4.2 MMOL/L (3.5-5.1); SODIUM LEVEL 138 MMOL/L (136-145)
== END ==
LOC: M SFHCADAM 11:53
PROVIDERS: ATTEND Physician Assistant Medical
DX: I50.32 Chronic diastolic (congestive) heart failure (principal); E66.2 Morbid (severe) obesity with alveolar hypoventilation

== ENCOUNTER → 2022-11-08 | Outpatient (REF) | payer OTHER ==
[2022-11-08 16:52] LABS: ALBUMIN 3.4 G/DL (3.2-5.2); ALKALINE PHOSPHATASE 93 U/L (46-116); ALT/SGPT 21 U/L (7.0-40); AST/SGOT 10 U/L (<34); BILIRUBIN,TOTAL 0.3 MG/DL (0.3-1.2); BLOOD UREA NITROGEN 11 MG/DL (9-23); CALCIUM LEVEL 8.9 MG/DL (8.5-10.1); CARBON DIOXIDE LEVEL 33 MMOL/L (20-31); CHLORIDE LEVEL 101 MMOL/L (98-107); CREATININE FOR GFR 0.63 MG/DL (0.55-1.30); GLOMERULAR FILTRATION RATE > 60.0 (>51); GLUCOSE, FASTING 110 MG/DL (60-100); POTASSIUM SERUM 3.8 MMOL/L (3.5-5.1); SODIUM LEVEL 140 MMOL/L (136-145)
[2022-11-08 17:14] LABS: HEMOGLOBIN A1c 6.5 % (4.0-6.0)
== END ==
LOC: M SFHCADAM 13:45
PROVIDERS: ATTEND Physician Assistant Medical
DX: R73.03 Prediabetes (principal)

== ENCOUNTER → 2023-01-12 | Outpatient (REF) | payer OTHER | LOC: M LABDRWAD 15:51 | PROVIDERS: ATTEND Internal Medicine Cardiovascular Disease | DX: I50.32 Chronic diastolic (congestive) heart failure (principal) ==

== ENCOUNTER → 2023-06-12 | Outpatient (REF) | payer OTHER ==
[2023-06-12 12:54] LABS: BASO # 0.1 10^3/uL (0.0-0.2); BASO % 1.1 % (0.0-1.0); EOS # 0.3 10^3/uL (0.0-0.5); EOS % 2.4 % (0.0-3.0); HEMATOCRIT 46.7 % (36.0-47.0); HEMOGLOBIN 15.1 g/dl (12.0-15.5); LYMPH # 2.9 10^3/uL (1.5-5.0); LYMPH % 23.9 % (24.0-44.0); MEAN CORPUSCULAR HGB CONC 32.3 g/dl (32.0-36.5); MEAN CORPUSCULAR VOLUME 92.7 fl (80.0-96.0); MONO % 7.8 % (2.0-8.0); NEUTROPHILS # 7.8 10^3/uL (1.5-8.5); NEUTROPHILS % 63.5 % (36.0-66.0); PLATELET COUNT, AUTOMATED 297 10^3/uL (150-450); RED BLOOD COUNT 5.04 10^6/uL (4.00-5.40); WHITE BLOOD COUNT 12.2 10^3/uL (4.0-10.0)
[2023-06-12 13:06] LABS: CREATININE, URINE 169.9 MG/DL; MAU/CREAT RATIO 44.7 MCG/MG (0.0-30.0)
[2023-06-12 13:16] LABS: HEMOGLOBIN A1c 6.5 % (4.0-6.0)
[2023-06-12 13:21] LABS: ALBUMIN 3.5 G/DL (3.2-5.2); ALKALINE PHOSPHATASE 104 U/L (46-116); ALT/SGPT 21 U/L (7.0-40); AST/SGOT 13 U/L (<34); BILIRUBIN,TOTAL 0.3 MG/DL (0.3-1.2); BLOOD UREA NITROGEN 15 MG/DL (9-23); CALCIUM LEVEL 9.4 MG/DL (8.5-10.1); CARBON DIOXIDE LEVEL 34 MMOL/L (20-31); CHLORIDE LEVEL 100 MMOL/L (98-107); CHOLESTEROL LEVEL 185 MG/DL (<200); CHOLESTEROL RISK RATIO 4.28 (<5); CREATININE FOR GFR 0.61 MG/DL (0.55-1.30); GLOMERULAR FILTRATION RATE > 60.0 (>51); GLUCOSE, FASTING 107 MG/DL (60-100); HDL CHOLESTEROL 43.2 MG/DL (>40); MAGNESIUM LEVEL 2.1 MG/DL (1.8-2.4); NON-HDL-C 141.8 MG/DL; POTASSIUM SERUM 3.3 MMOL/L (3.5-5.1); SODIUM LEVEL 140 MMOL/L (136-145); THYROID STIMULATING HORMONE 2.541 uIU/ML (0.55-4.78); TOTAL 25(OH) VITAMIN D 28.7 NG/ML (20.0-100.0); TOTAL PROTEIN 7.1 G/DL (5.7-8.2); TRIGLYCERIDES LEVEL 139 MG/DL (<150)
== END ==
LOC: M SFHCADAM 11:24
PROVIDERS: ATTEND Physician Assistant Medical
DX: E11.9 Type 2 diabetes mellitus without complications (principal); E03.9 Hypothyroidism, unspecified; E55.9 Vitamin D deficiency, unspecified

== ENCOUNTER → 2023-08-30 | Outpatient (CLI) | payer OTHER ==
[~2023-08-30] MED LIST changes: +DOXY-323; +DOXY-323 PO; -DOXY-443; -DOXY-443 PO
== END ==
LOC: M RAD 07:23
PROVIDERS: ATTEND Physician Assistant
DX: Z12.2 Encounter for screening for malignant neoplasm of respiratory organs (principal); F17.218 Nicotine dependence, cigarettes, with other nicotine-induced disorders; I25.10 Atherosclerotic heart disease of native coronary artery without angina pectoris; K80.20 Calculus of gallbladder without cholecystitis without obstruction

== ENCOUNTER → 2023-09-27 | Outpatient (REF) | payer OTHER | LOC: M SFHCADAM 12:11 | PROVIDERS: ATTEND Physician Assistant Medical | DX: J06.9 Acute upper respiratory infection, unspecified (principal) ==

== ENCOUNTER → 2023-10-04 | Outpatient (CLI) | payer OTHER | LOC: M RAD 09:50 | PROVIDERS: ATTEND Physician Assistant Medical | DX: K80.20 Calculus of gallbladder without cholecystitis without obstruction (principal); K76.0 Fatty (change of) liver, not elsewhere classified; R16.0 Hepatomegaly, not elsewhere classified ==

== ENCOUNTER → 2023-12-17 | Outpatient (CLI) | payer OTHER | LOC: M SLEEP 20:00 | PROVIDERS: ATTEND Physician Assistant | DX: G47.33 Obstructive sleep apnea (adult) (pediatric) (principal) ==

== ENCOUNTER → 2024-01-30 | Outpatient (REF) | payer OTHER ==
[~2024-01-30] MED LIST changes: -DOXY-323; -DOXY-323 PO; +DOXY-441; +DOXY-441 PO
[2024-01-30 12:53] LABS: BASO # 0.1 10^3/uL (0.0-0.2); BASO % 0.9 % (0.0-1.0); EOS # 0.3 10^3/uL (0.0-0.5); EOS % 1.9 % (0.0-3.0); HEMATOCRIT 47.6 % (36.0-47.0); HEMOGLOBIN 15.1 g/dl (12.0-15.5); LYMPH # 3.4 10^3/uL (1.5-5.0); LYMPH % 26.4 % (24.0-44.0); MEAN CORPUSCULAR HEMOGLOBIN 29.3 pg (27.0-33.0); MEAN CORPUSCULAR HGB CONC 31.7 g/dl (32.0-36.5); MEAN CORPUSCULAR VOLUME 92.4 fl (80.0-96.0); MONO # 0.9 10^3/uL (0.0-0.8); MONO % 6.8 % (2.0-8.0); NEUTROPHILS # 8.1 10^3/uL (1.5-8.5); NEUTROPHILS % 63.1 % (36.0-66.0); RED BLOOD COUNT 5.15 10^6/uL (4.00-5.40); WHITE BLOOD COUNT 12.8 10^3/uL (4.0-10.0)
[2024-01-30 13:19] LABS: ALBUMIN 3.4 G/DL (3.2-5.2); ALKALINE PHOSPHATASE 96 U/L (35-104); ALT/SGPT 20 U/L (7.0-40); AST/SGOT 11 U/L (<34); BILIRUBIN,TOTAL 0.3 MG/DL (0.3-1.2); BLOOD UREA NITROGEN 9 MG/DL (9-23); CALCIUM LEVEL 9.3 MG/DL (8.5-10.1); CARBON DIOXIDE LEVEL 29 MMOL/L (20-31); CHLORIDE LEVEL 103 MMOL/L (98-107); CHOLESTEROL LEVEL 200 MG/DL (<200); CREATININE FOR GFR 0.55 MG/DL (0.55-1.30); CREATININE, URINE 88.2 MG/DL; FREE T4 1.12 NG/DL (0.89-1.76); GLOMERULAR FILTRATION RATE > 60.0 (>51); GLUCOSE, FASTING 98 MG/DL (60-100); HDL CHOLESTEROL 45.4 MG/DL (>40); LDL CHOLESTEROL 122.4 MG/DL (<100); MAU/CREAT RATIO 4.5 MCG/MG (0.0-30.0); NON-HDL-C 154.6 MG/DL; POTASSIUM SERUM 4.3 MMOL/L (3.5-5.1); SODIUM LEVEL 141 MMOL/L (136-145); TOTAL PROTEIN 7.2 G/DL (5.7-8.2); TRIGLYCERIDES LEVEL 161 MG/DL (<150)
[2024-01-30 13:20] LABS: THYROID STIMULATING HORMONE 3.114 uIU/ML (0.55-4.78); TOTAL 25(OH) VITAMIN D 17.4 NG/ML (20.0-100.0)
[2024-01-30 13:51] LABS: HEMOGLOBIN A1c 6.4 % (4.0-6.0)
== END ==
LOC: M SFHCADAM 10:51
PROVIDERS: ATTEND Physician Assistant Medical
DX: E11.9 Type 2 diabetes mellitus without complications (principal); E03.9 Hypothyroidism, unspecified; E66.01 Morbid (severe) obesity due to excess calories; E55.9 Vitamin D deficiency, unspecified

== ENCOUNTER → 2024-02-01 | Outpatient (REF) | payer OTHER ==
[2024-02-01 18:34] LABS: HEMATOCRIT 47.2 % (36.0-47.0); HEMOGLOBIN 15.1 g/dl (12.0-15.5); MEAN CORPUSCULAR HEMOGLOBIN 30.6 pg (27.0-33.0); MEAN CORPUSCULAR VOLUME 95.7 fl (80.0-96.0); PLATELET COUNT, AUTOMATED 279 10^3/uL (150-450); RED BLOOD COUNT 4.93 10^6/uL (4.00-5.40); WHITE BLOOD COUNT 13.8 10^3/uL (4.0-10.0)
[2024-02-01 19:45] LABS: ATYPICAL LYMPH 1 % (0-5); BASOPHILS 1 % (0-1); EOSINOPHILS 1 % (0-3); LYMPHOCYTES 40 % (16-44); MONOCYTES 4 % (0-5); NEUTROPHILS 53 % (28-66)
[2024-02-01 19:47] LABS: PLATELET CLUMPS SMALL AMT; PLATELET ESTIMATE NORMAL (NORMAL)
== END ==
LOC: M SFHCADAM 11:25
PROVIDERS: ATTEND Physician Assistant Medical
DX: F17.210 Nicotine dependence, cigarettes, uncomplicated (principal); R53.82 Chronic fatigue, unspecified

== ENCOUNTER → 2024-08-07 | Outpatient (REF) | payer OTHER ==
[2024-08-07 17:41] LABS: ALBUMIN 3.6 G/DL (3.2-5.2); ALKALINE PHOSPHATASE 93 U/L (35-104); ALT/SGPT 18 U/L (7.0-40); AST/SGOT 10 U/L (<34); BILIRUBIN,TOTAL 0.2 MG/DL (0.3-1.2); BLOOD UREA NITROGEN 10 MG/DL (9-23); CALCIUM LEVEL 8.8 MG/DL (8.5-10.1); CARBON DIOXIDE LEVEL 27 MMOL/L (20-31); CHLORIDE LEVEL 106 MMOL/L (98-107); CHOLESTEROL LEVEL 126 MG/DL (<200); CREATININE FOR GFR 0.59 MG/DL (0.55-1.30); GLOMERULAR FILTRATION RATE > 90.0 (>51); GLUCOSE, FASTING 88 MG/DL (60-100); HDL CHOLESTEROL 48.3 MG/DL (>40); HEMATOCRIT 48.5 % (36.0-47.0); HEMOGLOBIN 15.4 g/dl (12.0-15.5); LDL CHOLESTEROL 56.3 MG/DL (<100); MEAN CORPUSCULAR HEMOGLOBIN 29.8 pg (27.0-33.0); MEAN CORPUSCULAR HGB CONC 31.8 g/dl (32.0-36.5); NON-HDL-C 77.7 MG/DL; PLATELET COUNT, AUTOMATED 264 10^3/uL (150-450); POTASSIUM SERUM 4.2 MMOL/L (3.5-5.1); RED BLOOD COUNT 5.16 10^6/uL (4.00-5.40); SODIUM LEVEL 141 MMOL/L (136-145); TOTAL PROTEIN 7.1 G/DL (5.7-8.2); TRIGLYCERIDES LEVEL 107 MG/DL (<150); WHITE BLOOD COUNT 12.9 10^3/uL (4.0-10.0)
[2024-08-07 17:43] LABS: FREE T4 0.96 NG/DL (0.89-1.76); TOTAL 25(OH) VITAMIN D 36.8 NG/ML (20.0-100.0)
[2024-08-07 18:10] LABS: HEMOGLOBIN A1c 6.4 % (4.0-6.0)
[2024-08-07 18:12] LABS: CREATININE, URINE 107.1 MG/DL; MAU/CREAT RATIO 21.4 MCG/MG (0.0-30.0)
[2024-08-07 18:16] LABS: ATYPICAL LYMPH 14 % (0-5); BASOPHILS 1 % (0-1); EOSINOPHILS 3 % (0-3); LYMPHOCYTES 26 % (16-44); MONOCYTES 3 % (0-5); NEUTROPHILS 52 % (28-66); PLATELET ESTIMATE NORMAL (NORMAL)
[2024-08-07 18:17] LABS: BURR CELLS 1+; POIKILOCYTOSIS 1+
== END ==
LOC: M SFHCADAM 10:37
PROVIDERS: ATTEND Physician Assistant Medical
DX: E11.9 Type 2 diabetes mellitus without complications (principal); E03.9 Hypothyroidism, unspecified; E66.01 Morbid (severe) obesity due to excess calories; E55.9 Vitamin D deficiency, unspecified

== ENCOUNTER → 2024-12-09 | Outpatient (CLI) | payer OTHER | LOC: M RAD 08:30 | PROVIDERS: ATTEND Physician Assistant | DX: Z87.891 Personal history of nicotine dependence (principal) ==